=== PATIENT | female | born 1995 | race Caucasian/White ===

== ENCOUNTER 2017-03-15 11:50 | Emergency (ER) | payer SELFPAY ==
[2017-03-15 11:59] VITALS: BP 120/62
--- NOTE | 2017-03-15 12:14 | ER Document Report ---
HPI - HPI Patient complains to provider of: insect bite Pain Level: 2 Context: 21 yo healthy female c/o swollen insect bite to dorsal left hand x 3 days. local swelling and itching. no drainage. feels otherwise fine. Associated Symptoms: None Exacerbated by: Denies Relieved by: Denies Similar symptoms previously: No Recently seen / treated by doctor: No - ROS Systems Reviewed and Negative: Yes All other systems reviewed and negative - REPRODUCTIVE LMP: mirena Reproductive: REPORTS: : - DERM Skin Color: Normal Past Medical History - General Information source: Patient - Social History Smoking Status: Current Every Day Smoker Frequency of alcohol use: None Drug Abuse: None Lives with: Family Family History: Reviewed & Not Pertinent Patient has suicidal ideation: No Patient has homicidal ideation: No - Medical History Medical History: Negative - Past Medical History Cardiac Medical History: Denies: Hx DVT Endocrine Medical History: Denies: Hx Diabetes Mellitus Type 1, Hx Diabetes Mellitus Type 2 Renal/ Medical History: Denies: Hx Ectopic , Hx Peritoneal Dialysis Past Surgical History: Reports: Hx Cardiac Surgery - repaired hole in heart, Hx Herniorrhaphy - Immunizations Hx Diphtheria, Pertussis, Tetanus Vaccination: Yes Vertical Provider Document - CONSTITUTIONAL Agree With Documented VS: Yes Exam Limitations: No Limitations General Appearance: WD/WN, No Apparent Distress - INFECTION CONTROL TRAVEL OUTSIDE OF THE [place] IN LAST 30 DAYS: No - HEENT HEENT: Atraumatic, PERRLA - NECK Neck: Normal Inspection, Supple - RESPIRATORY Respiratory: Breath Sounds Normal, No Respiratory Distress O2 Sat by Pulse Oximetry: 100 - CARDIOVASCULAR Cardiovascular: Regular Rate, Regular Rhythm - GI/ABDOMEN Gastrointestinal: Abdomen Soft - MUSCULOSKELETAL/EXTREMETIES Musculoskeletal/Extremeties: MAEW, FROM, Non-Tender - NEURO Level of Consciousness: Awake, Alert - DERM Integumentary: Warm, Dry, Rash - dime sized erythema and induration to mid dorsal left hand. no fluctuance. Course - Re-evaluation Re-evalutation: 03/15/17 12:11 H&P c/w local reaction to insect bite. no s/s infection. will treat with topical hydrocortisone cream and benadryl. pt agreeable with plan and stable for discharge - Vital Signs Vital signs: Temp Pulse Resp BP Pulse Ox 98.1 F 71 16 120/62 100 03/15/17 11:57 03/15/17 11:57 03/15/17 11:57 03/15/17 11:57 03/15/17 11:57 Discharge - Discharge Clinical Impression: Insect bite Qualifiers: Encounter type: initial encounter Qualified Code(s): W57.XXXA - Bitten or stung by nonvenomous insect and other nonvenomous arthropods, initial encounter Condition: Stable Disposition: HOME, SELF-CARE Instructions: Swollen Insect Bite or Sting ([facility]), Topical Steroid Cream or Ointment ([facility]), Use of Diphenhydramine Additional Instructions: apply ice to hand use topical steroid cream as prescribed benadryl 50mg every 6h follow up with primary care for any worsening Prescriptions: Triamcinolone Acetonide [Aristocort 0.5% Cream 15 gm] 1 applic TP BID #15 g Forms: Return to Work
== END 2017-03-15 12:20 | disposition home or self-care (01) ==
LOC: ER 11:50
DX: S60.562A Insect bite (nonvenomous) of left hand, initial encounter (principal); W57.XXXA Bitten or stung by nonvenomous insect and other nonvenomous arthropods, initial encounter; F17.200 Nicotine dependence, unspecified, uncomplicated; Z97.5 Presence of (intrauterine) contraceptive device
CPT/HCPCS: 99281

== ENCOUNTER 2017-03-24 21:06 | Emergency (ER) | payer SELFPAY ==
--- NOTE | 2017-03-24 22:13 | ER Document Report ---
ED Skin Rash/Insect Bite/Abscs - General Chief Complaint: Insect Bite Stated Complaint: POSSIBLE INSECT BITE Time Seen by Provider: 03/24/17 21:29 Mode of Arrival: Ambulatory Information source: Patient Notes: 21-year-old female presents to ED for complaint on insect bites on her both arms and left lower back for several days. Patient was seen for the same problem a week ago and given steroid cream. Patient states that the she has been using the cream on the right and has had some relief but not complete. TRAVEL OUTSIDE OF THE [place] IN LAST 30 DAYS: No - HPI Patient complains to provider of: Insect bite Onset: Other - Several days Onset/Duration: Persistent Quality of pain: Achy, Burning Severity: Mild Pain Level: 1 Skin Character: Erythema, Swelling, Tenderness Quality of rash: Painful Identify cause: Yes Exacerbated by: Denies Relieved by: Denies Similar symptoms previously: Yes Recently seen / treated by doctor: Yes - Related Data Allergies/Adverse Reactions: amoxicillin Allergy (Verified 07/01/16 09:52) clindamycin Allergy (Verified 07/01/16 09:52) Penicillins Allergy (Verified 07/01/16 09:52) sulfamethoxazole [From Bactrim] Allergy (Verified 07/29/14 13:21) trimethoprim [From Bactrim] Allergy (Verified 07/29/14 13:21) Past Medical History - General Information source: Patient - Social History Smoking Status: Current Every Day Smoker Cigarette use (# per day): Yes - 3-5 cigarettes a day Chew tobacco use (# tins/day): No Smoking Education Provided: Yes - Less than 2 minutes Frequency of alcohol use: None Drug Abuse: None Occupation: [employer] Lives with: Family Family History: CAD, COPD, DM, Hyperlipidemia, Hypertension Patient has suicidal ideation: No Patient has homicidal ideation: No - Medical History Medical History: Other - 26 weeks gestation - Past Medical History Cardiac Medical History: Reports: Other - vsd repaired as infant Pulmonary Medical History: Reports: None EENT Medical History: Reports: None Neurological Medical History: Reports: None Endocrine Medical History: Reports: None Renal/ Medical History: Reports: None Malignancy Medical History: Reports: None GI Medical History: Reports: None Musculoskeltal Medical History: Reports None Skin Medical History: Reports None Psychiatric Medical History: Reports: Hx Depression - depression Traumatic Medical History: Reports: None Infectious Medical History: Reports: None Past Surgical History: Reports: Hx Cardiac Surgery - vsd repair, Hx Herniorrhaphy, Hx Umbilical Hernia - Immunizations Hx Diphtheria, Pertussis, Tetanus Vaccination: Yes Review of Systems - Review of Systems Constitutional: No symptoms reported EENT: No symptoms reported Cardiovascular: No symptoms reported Respiratory: No symptoms reported Gastrointestinal: No symptoms reported Genitourinary: No symptoms reported Female Genitourinary: No symptoms reported Musculoskeletal: No symptoms reported Skin: Other - insect bites to arms and left lower back Hematologic/Lymphatic: No symptoms reported Neurological/Psychological: No symptoms reported -: Yes All other systems reviewed and negative Physical Exam - Vital signs Vitals: Temp Pulse Resp BP Pulse Ox 97.9 F 63 18 121/73 100 03/24/17 21:10 03/24/17 21:10 03/24/17 21:10 03/24/17 21:10 03/24/17 21:10 Interpretation: Normal - General General appearance: Appears well, Alert - HEENT Head: Normocephalic, Atraumatic Eyes: Normal Pupils: PERRL - Respiratory Respiratory status: No respiratory distress Chest status: Nontender Breath sounds: Normal Chest palpation: Normal - Cardiovascular Rhythm: Regular Heart sounds: Normal auscultation Murmur: No - Abdominal Inspection: Normal Distension: No distension Bowel sounds: Normal Tenderness: Nontender Organomegaly: No organomegaly - Back Back: Normal, Nontender - Extremities General upper extremity: Normal inspection, Nontender, Normal color, Normal ROM , Normal temperature General lower extremity: Normal inspection, Nontender, Normal color, Normal ROM , Normal temperature, Normal weight bearing. No: Jose De Jesus's sign - Neurological Neuro grossly intact: Yes Cognition: Normal Orientation: AAOx4 [place] Coma Scale Eye Opening: Spontaneous [place] Coma Scale Verbal: Oriented [place] Coma Scale Motor: Obeys Commands [place] Coma Scale Total: 15 Speech: Normal Motor strength normal: LUE, RUE, LLE, RLE Sensory: Normal - Psychological Associated symptoms: Normal affect, Normal mood - Skin Skin Temperature: Warm Skin Moisture: Dry Skin Color: Normal Location of irregularity: Extremities - insect bites to arms and left lower back Irregularity with: Swelling, Tenderness Course - Vital Signs Vital signs: Temp Pulse Resp BP Pulse Ox 98.6 F 60 17 100/53 L 98 03/24/17 22:29 03/24/17 22:29 03/24/17 22:29 03/24/17 22:29 03/24/17 22:29 Discharge - Discharge Clinical Impression: Insect bite of arm Qualifiers: Encounter type: initial encounter Laterality: unspecified laterality Qualified Code(s): S40.869A - Insect bite (nonvenomous) of unspecified upper arm, initial encounter Insect bite of back Qualifiers: Encounter type: initial encounter Laterality: unspecified laterality Qualified Code(s): S20.469A - Insect bite (nonvenomous) of unspecified back wall of thorax , initial encounter Condition: Stable Disposition: HOME, SELF-CARE Instructions: Family Physicians / Practices Additional Instructions: Insect Bites You have been bitten by an insect. These bites can cause two types of swelling: an initial swelling due to insect saliva or injected poison, and a late reaction due to your body's allergic reaction. This initial local reaction may be uncomfortable but is not dangerous. Often there's an itchy "hive" at the bite location. This is treated with antihistamines, cold compresses, and resting the affected body part. The later reaction often develops about the second day. The entire area becomes very swollen, red, itchy, and tender. This is an allergic reaction. Your body is attacking the leftover insect saliva or venom. This type of allergy is unpleasant, but not dangerous. We treat this swelling with cortisone -type medicine. Sometimes we use antibiotics if we're worried about infection. Antihistamines help with the itch. If you develop a fever, chills, a red streak, or swollen glands in the area of the bite, infection may be starting. Return at once. Diphenhydramine The use of diphenhydramine (Benadryl) has been recommended to control allergic symptoms. The 25 mg strength is available over- the-counter, as well as the elixir. This antihistamine is used for many symptoms. It's useful for itching, watering eyes and nose, allergic swelling, hives, and insect stings. The medication can be repeated four times daily. Age Elixir (12.5 mg/tsp) 25 mg pill 1 yr 1/4 tsp 2-3 yr 1/2 tsp 4-8 yr 1 tsp 9-14 yr 2 tsp one tab adult 1-2 tabs Antihistamines may cause drowsiness, especially with the first dose. Do not operate machinery or drive while under the effects of the medication. Do not combine the medication with alcohol, or with any other medication without talking to your doctor. Ice Packs Apply ice packs frequently against the painful area. Many different schedules are recommended, such as "20 minutes on, 20 minutes off" or "one hour ice, two hours rest." If you need to work, you may need to go longer between ice treatments. You should plan to have the area ice packed AT LEAST one fourth of the time. The ice should be applied over the wrap, tape, or splint, or over a layer of cloth -- not directly against the skin. Some ice bags have a built-in cloth and can be put directly on the skin. Ibuprofen Ibuprofen is an excellent, safe drug for pain control. In addition, it has potent antiinflammatory effects which are beneficial, especially in the treatment of injuries, arthritis, or tendonitis. It's best to take ibuprofen with food. Persons with ulcer disease or allergy to aspirin should notify their physician of this before taking ibuprofen. Take the medication exactly as prescribed. Don't take additional doses unless instructed to do so by your doctor. If you develop wheezing, shortness of breath, hives, faintness, stomach pain, vomiting, or dark black stools, return for re-evaluation at once. FOLLOW-UP CARE: If you have been referred to a physician for follow-up care, call the physician s office for an appointment as you were instructed or within the next two days. If you experience worsening or a significant change in your symptoms, notify the physician immediately or return to the Emergency Department at any time for re-evaluation. Forms: Smoking Cessation Education, Return to Work
[2017-03-24 22:30] VITALS: BP 100/53
== END 2017-03-24 22:30 | disposition home or self-care (01) ==
LOC: ER 21:06
DX: O9A.212 Injury, poisoning and certain other consequences of external causes complicating pregnancy, second trimester (principal); S30.860A Insect bite (nonvenomous) of lower back and pelvis, initial encounter; S40.862A Insect bite (nonvenomous) of left upper arm, initial encounter; S40.861A Insect bite (nonvenomous) of right upper arm, initial encounter; W57.XXXA Bitten or stung by nonvenomous insect and other nonvenomous arthropods, initial encounter; O99.332 Smoking (tobacco) complicating pregnancy, second trimester; F17.210 Nicotine dependence, cigarettes, uncomplicated; Z71.6 Tobacco abuse counseling; Z3A.26 26 weeks gestation of pregnancy; Z88.1 Allergy status to other antibiotic agents; Z88.0 Allergy status to penicillin
CPT/HCPCS: 99281

== ENCOUNTER 2017-05-07 09:54 | Emergency (ER) | payer SELFPAY ==
[2017-05-07] MEDS ORDERED: MAG HYDROX/AL HYDROX/SIMETH SUSP 30 ML UDCUP PO ONE (10:18)
[2017-05-07] MEDS ORDERED: LIDOCAINE 2% VISCOUS SOLN 20 ML UDCUP PO ONE (10:18)
[2017-05-07] MEDS ORDERED: ONDANSETRON 4 MG TAB.RAPDIS PO ONE (10:18)
--- NOTE | 2017-05-07 10:21 | ER Document Report ---
ED Medical Screen (RME) - General Chief Complaint: Abdominal Pain Stated Complaint: STOMACH PAIN Time Seen by Provider: 05/07/17 10:13 Notes: 21-year-old female patient onset yesterday of epigastric cramping. Nausea and making herself vomit. 2 episodes of diarrhea today. She reports when she stands up quickly from laying down the cramping gets worse in the epigastric region. On exam abdomen is soft, right upper quadrant is not tender, epigastrium is tender, active bowel sounds. I have greeted and performed a rapid initial assessment of this patient. A comprehensive ED assessment and evaluation of the patient, analysis of test results and completion of the medical decision making process will be conducted by additional ED providers. TRAVEL OUTSIDE OF THE [place] IN LAST 30 DAYS: No - Related Data Allergies/Adverse Reactions: amoxicillin Allergy (Verified 05/07/17 09:57) clindamycin Allergy (Verified 05/07/17 09:57) Penicillins Allergy (Verified 05/07/17 09:57) sulfamethoxazole [From Bactrim] Allergy (Verified 05/07/17 09:57) trimethoprim [From Bactrim] Allergy (Verified 05/07/17 09:57) Past Medical History - Social History Chew tobacco use (# tins/day): No Frequency of alcohol use: None Drug Abuse: None - Past Medical History Cardiac Medical History: Denies: Hx DVT Endocrine Medical History: Denies: Hx Diabetes Mellitus Type 1, Hx Diabetes Mellitus Type 2 Renal/ Medical History: Denies: Hx Ectopic , Hx Peritoneal Dialysis Psychiatric Medical History: Reports: Hx Depression - depression Past Surgical History: Reports: Hx Abdominal Surgery - hernia, Hx Cardiac Surgery - vsd repair, Hx Herniorrhaphy, Hx Umbilical Hernia - Immunizations Hx Diphtheria, Pertussis, Tetanus Vaccination: No Physical Exam - Vital signs Vitals: Temp Pulse Resp BP Pulse Ox 97.6 F 64 14 125/77 99 05/07/17 09:57 05/07/17 09:57 05/07/17 09:57 05/07/17 09:57 05/07/17 09:57 Course - Vital Signs Vital signs: Temp Pulse Resp BP Pulse Ox 97.6 F 64 14 125/77 99 05/07/17 09:57 05/07/17 09:57 05/07/17 09:57 05/07/17 09:57 05/07/17 09:57
[2017-05-07 10:45] LABS: ABSOLUTE EOSINOPHILS # (AUTO) 0.1 10^3/uL (0.0-0.6); ABSOLUTE LYMPHOCYTES (AUTO) 1.1 10^3/uL (0.5-4.7); ABSOLUTE MONOCYTES (AUTO) 0.6 10^3/uL (0.1-1.4); ABSOLUTE NEUT (AUTO) 3.6 10^3/uL (1.7-8.2); BASOPHILS % (AUTO) 0.9 % (0-2); EOSINOPHILS % (AUTO) 1.2 % (0-6); HEMATOCRIT 47.2 % (36.0-47.0); HEMOGLOBIN 16.9 g/dL (12.0-15.5); HGB HCT DIFFERENCE 3.5; LYMPHOCYTES % (AUTO) 19.8 % (13-45); MEAN CORPUSCULAR HEMOGLOBIN 32.1 pg (27.0-33.4); MEAN CORPUSCULAR HGB CONC 35.8 g/dL (32.0-36.0); MEAN CORPUSCULAR VOLUME 90 fl (80-97); RED BLOOD COUNT 5.26 10^6/uL (3.72-5.28); RED CELL DISTRIBUTION WIDTH 12.3 % (11.5-14.0); SEGMENTED NEUTROPHILS % (AUTO) 66.1 % (42-78); WHITE BLOOD COUNT 5.4 10^3/uL (4.0-10.5)
[2017-05-07 10:52] LABS: APPEARANCE,URINE SLIGHTLY-CLOUDY; BILIRUBIN,URINE NEGATIVE (NEGATIVE); GLUCOSE, URINE NEGATIVE (NEGATIVE); KETONES,URINE 20 mg/dL (NEGATIVE); LEUKOCYTE ESTERASE,URINE NEGATIVE (NEGATIVE); NITRITE,URINE NEGATIVE (NEGATIVE); PROTEIN,URINE NEGATIVE (NEGATIVE); URINE SPECIFIC GRAVITY 1.024
[2017-05-07 11:04] LABS: ALANINE AMINOTRANSFERASE 24 U/L (9-52); ALKALINE PHOSPHATASE 95 U/L (38-126); ANION GAP 14 (5-19); ASPARTATE AMINO TRANSFERASE 30 U/L (14-36); BILIRUBIN,DIRECT 0.5 mg/dL (0.0-0.4); BILIRUBIN,TOTAL 2.1 mg/dL (0.2-1.3); BLOOD UREA NITROGEN 13 mg/dL (7-20); CALCIUM 10.3 mg/dL (8.4-10.2); CARBON DIOXIDE 24 mmol/L (22-30); CHLORIDE 102 mmol/L (98-107); CREATININE RESULT 0.67 mg/dL (0.52-1.25); GLUCOSE 73 mg/dL (75-110); LIPASE 50.9 U/L (23-300); POTASSIUM 4.2 mmol/L (3.6-5.0); SODIUM 140.3 mmol/L (137-145); TOTAL PROTEIN 7.9 g/dL (6.3-8.2)
--- NOTE | 2017-05-07 11:28 | ER Document Report ---
ED General - General Chief Complaint: Abdominal Pain Stated Complaint: STOMACH PAIN Time Seen by Provider: 05/07/17 10:13 TRAVEL OUTSIDE OF THE [place] 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 Patient denies any other medical problems denies any abdominal surgeries. Upon my evaluation patient is resting company smiling in no obvious distress. Denies any trauma recent antibiotics. Denies fevers chills chest pain. - Related Data Allergies/Adverse Reactions: amoxicillin Allergy (Verified 05/07/17 09:57) clindamycin Allergy (Verified 05/07/17 09:57) Penicillins Allergy (Verified 05/07/17 09:57) sulfamethoxazole [From Bactrim] Allergy (Verified 05/07/17 09:57) trimethoprim [From Bactrim] Allergy (Verified 05/07/17 09:57) Past Medical History - Social History Smoking Status: Current Every Day Smoker Chew tobacco use (# tins/day): No Frequency of alcohol use: None Drug Abuse: None Family History: CAD, COPD, DM, Hyperlipidemia, Hypertension - Past Medical History Cardiac Medical History: Denies: Hx DVT Endocrine Medical History: Denies: Hx Diabetes Mellitus Type 1, Hx Diabetes Mellitus Type 2 Renal/ Medical History: Denies: Hx Ectopic , Hx Peritoneal Dialysis Psychiatric Medical History: Reports: Hx Depression - depression Past Surgical History: Reports: Hx Abdominal Surgery - hernia, Hx Cardiac Surgery - vsd repair, Hx Herniorrhaphy, Hx Umbilical Hernia - Immunizations Hx Diphtheria, Pertussis, Tetanus Vaccination: No Review of Systems - Review of Systems Constitutional: No symptoms reported EENT: No symptoms reported Cardiovascular: No symptoms reported Respiratory: No symptoms reported Gastrointestinal: Abdominal pain Genitourinary: No symptoms reported Female Genitourinary: No symptoms reported Musculoskeletal: No symptoms reported Skin: No symptoms reported Hematologic/Lymphatic: No symptoms reported Neurological/Psychological: No symptoms reported -: Yes All other systems reviewed and negative Physical Exam - Vital signs Vitals: Temp Pulse Resp BP Pulse Ox 97.6 F 64 14 125/77 99 05/07/17 09:57 05/07/17 09:57 05/07/17 09:57 05/07/17 09:57 05/07/17 09:57 Interpretation: Normal - General General appearance: Appears well, Alert - HEENT Head: Normocephalic, Atraumatic Eyes: Normal Pupils: PERRL - Respiratory Respiratory status: No respiratory distress Chest status: Nontender Breath sounds: Normal Chest palpation: Normal - Cardiovascular Rhythm: Regular Heart sounds: Normal auscultation Murmur: No - Abdominal Inspection: Normal Distension: No distension Bowel sounds: Normal Tenderness: Nontender Organomegaly: No organomegaly - Back Back: Normal, Nontender - Extremities General upper extremity: Normal inspection, Nontender, Normal color, Normal ROM , Normal temperature General lower extremity: Normal inspection, Nontender, Normal color, Normal ROM , Normal temperature, Normal weight bearing. No: Jose De Jesus's sign - Neurological Neuro grossly intact: Yes Cognition: Normal Orientation: AAOx4 [place] Coma Scale Eye Opening: Spontaneous [place] Coma Scale Verbal: Oriented [place] Coma Scale Motor: Obeys Commands [place] Coma Scale Total: 15 Speech: Normal Motor strength normal: LUE, RUE, LLE, RLE Sensory: Normal - Psychological Associated symptoms: Normal affect, Normal mood - Skin Skin Temperature: Warm Skin Moisture: Dry Skin Color: Normal Course - Re-evaluation Re-evalutation: 05/07/17 14:15 The patient presents with abdominal pain without signs of peritonitis or other life-threatening or serious etiology. The patient appears stable for discharge and has been instructed to return immediately if the symptoms worsen in any way , or in 8-12hr if not improved for re-evaluation. The patient has been instructed to return if the symptoms worsen or change in any way. - Vital Signs Vital signs: Temp Pulse Resp BP Pulse Ox 97.8 F 66 16 120/70 100 05/07/17 11:39 05/07/17 11:39 05/07/17 11:39 05/07/17 11:39 05/07/17 11:39 - Laboratory Result Diagrams: 05/07/17 10:30 05/07/17 10:30 Laboratory results interpreted by me: 05/07/17 05/07/17 05/07/17 10:30 10:30 10:30 Hgb 16.9 H Hct 47.2 H Plt Count 145 L Glucose 73 L Calcium 10.3 H Total Bilirubin 2.1 H Direct Bilirubin 0.5 H Urine Ketones 20 H Urine Blood SMALL H Urine Urobilinogen 2.0 H Discharge - Discharge Clinical Impression: Nausea & vomiting Qualifiers: Vomiting type: unspecified Vomiting Intractability: unspecified Qualified Code( s): R11.2 - Nausea with vomiting, unspecified Abdominal pain Qualifiers: Abdominal location: unspecified location Qualified Code(s): R10.9 - Unspecified abdominal pain Condition: Good Disposition: HOME, SELF-CARE Instructions: Abdominal Pain ([facility]), Vomiting ([facility]) Additional Instructions: Take medication as prescribed. Return to the ER if symptoms worsen. Follow-up with your primary care physician. Prescriptions: Ondansetron [Zofran Odt 4 mg Tablet] 4 mg PO Q4HP PRN #30 tab.rapdis PRN Reason: Dicyclomine HCl [Bentyl 20 mg Tablet] 20 mg PO QID #30 tablet Forms: Return to Work
[2017-05-07 11:40] VITALS: BP 120/70
== END 2017-05-07 11:40 | disposition home or self-care (01) ==
LOC: ER 09:54
DX: R11.2 Nausea with vomiting, unspecified (principal); R10.13 Epigastric pain; F17.200 Nicotine dependence, unspecified, uncomplicated; Z88.0 Allergy status to penicillin; Z88.3 Allergy status to other anti-infective agents
CPT/HCPCS: 99284; 36415; 83690; 85025; 80053; 81001; S0119; J3490

== ENCOUNTER 2017-10-26 14:59 | Emergency (ER) | payer MEDICAID ==
[2017-10-26 15:05] VITALS: BP 111/65
--- NOTE | 2017-10-26 15:19 | ER Document Report ---
ED General - General Chief Complaint: Flu Symptoms Stated Complaint: HEADACHE,BODY ACHES,SORE THROAT Time Seen by Provider: 10/26/17 15:16 Mode of Arrival: Ambulatory Information source: Patient Notes: Patient is a healthy 21-year-old female who presents with headache, sore throat , body aches, chills that started this morning after she woke up. 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 She denies any fever, dizziness, changes in vision, ear pain, neck pain or stiffness, photophobia, phonophobia, difficulty breathing, vomiting, diarrhea. She tried some Tylenol for headache which did improve mildly. Otherwise doing well. TRAVEL OUTSIDE OF THE [place] IN LAST 30 DAYS: No - Related Data Allergies/Adverse Reactions: amoxicillin Allergy (Verified 10/26/17 15:02) clindamycin Allergy (Verified 10/26/17 15:02) Penicillins Allergy (Verified 10/26/17 15:02) sulfamethoxazole [From Bactrim] Allergy (Verified 10/26/17 15:02) trimethoprim [From Bactrim] Allergy (Verified 10/26/17 15:02) Past Medical History - General Information source: Patient - Social History Smoking Status: Never Smoker Family History: CAD, COPD, DM, Hyperlipidemia, Hypertension - Past Medical History Cardiac Medical History: Denies: Hx DVT Endocrine Medical History: Denies: Hx Diabetes Mellitus Type 1, Hx Diabetes Mellitus Type 2 Renal/ Medical History: Denies: Hx Ectopic , Hx Peritoneal Dialysis Psychiatric Medical History: Reports: Hx Depression - depression Past Surgical History: Reports: Hx Abdominal Surgery - hernia, Hx Cardiac Surgery - vsd repair, Hx Herniorrhaphy, Hx Umbilical Hernia - Immunizations Hx Diphtheria, Pertussis, Tetanus Vaccination: No Review of Systems - Review of Systems Constitutional: See HPI EENT: No symptoms reported, See HPI Cardiovascular: No symptoms reported Respiratory: See HPI Gastrointestinal: No symptoms reported Genitourinary: No symptoms reported Female Genitourinary: No symptoms reported Musculoskeletal: No symptoms reported Skin: No symptoms reported Hematologic/Lymphatic: No symptoms reported Neurological/Psychological: No symptoms reported Physical Exam - Vital signs Vitals: Temp Pulse Resp BP Pulse Ox 98.5 F 80 16 111/65 98 10/26/17 15:03 10/26/17 15:03 10/26/17 15:03 10/26/17 15:03 10/26/17 15:03 - Notes Notes: PHYSICAL EXAM: CONSTITUTIONAL: Alert and oriented, well-appearing and in no acute distress. HENT: Normocephalic, atraumatic. Ear canals without erythema or foreign body, TMs pearly dale with good bony landmarks. Nares clear without erythema, septal hematoma or deviation, airway patent. Oropharynx clear without erythema, tonsilar exudate or malocclusion. Trachea midline. Uvula midline. Moist mucous membranes. EYES: Pupils equal round and reactive to light, EOM intact. Sclera anicteric, conjunctiva are normal. No entrapment. NECK: supple without lymphadenopathy. No midline tenderness or paraspinous muscle spasms. No step-offs or deformities. ROM intact. HEART: Regular rate and rhythm without murmurs. LUNGS: CTAB and equal. No wheezes, rales or rhonchi. GI: Normactive bowel sounds. Nontender, non-distended. No organomegaly. no CVAT. EXTREMITIES: no bony tenderness, erythema, edema, ecchymosis or deformity. Normal range of motion, no pitting edema. No cyanosis. Cap Refill <3 seconds. NEURO: Cranial nerves grossly intact. Normal sensory/motor exams. PSYCH: Normal mood, normal affect. SKIN: Warm and dry. Normal turgor. No rashes or lesions noted. Course - Re-evaluation Re-evalutation: 10/26/17 15:19 Patient seen and examined. Well hydrated, well appearing, no respiratory distress. Vital signs stable and afebrile. Exam consistent with viral syndrome. Negative rapid strep and rapid flu. Will treat with supportive medications. Low suspicion for SAH, meningitis, pneumonia, sepsis or other emergent conditions. At this time, will discharge with return precautions and follow-up recommendations. Verbal discharge instructions given at the bedside and opportunity for questions given. Medication warnings reviewed. Patient is in agreement with this plan and has verbalized understanding of return precautions and the need for primary care follow-up in the next 24-72 hours. - Vital Signs Vital signs: Temp Pulse Resp BP Pulse Ox 98.5 F 80 16 111/65 98 10/26/17 15:03 10/26/17 15:03 10/26/17 15:03 10/26/17 15:03 03/01/18 15:03 Discharge - Discharge Clinical Impression: Viral syndrome Condition: Stable Disposition: HOME, SELF-CARE Additional Instructions: UPPER RESPIRATORY ILLNESS: You have a viral infection of the respiratory passages -- a "cold." This common infection causes nasal congestion, drainage, and often sore throat and cough. It is highly contagious. The disease usually lasts about 10 to 14 days. There is no "cure" for the viral infection -- it must run its course. If there is a complication, such as bacterial infection in the nose, sinuses, middle ear, or bronchial tubes, antibiotics may be required. The antibiotics won't affect the virus. Drink plenty of fluids. A humidifier may help. An expectorant medication or decongestant may make you more comfortable. Use acetaminophen or ibuprofen for fever or aches. See the doctor if fever persists over two days, if there is any significant worsening of your symptoms, or if you simply fail to improve as expected. DECONGESTANT MEDICATION: A decongestant medicine has been prescribed. Often this medicine is combined in the same tablet with an antihistamine or expectorant. This type of medicine is helpful in treating a bad cold or sinus condition, as well as in treatment of the nasal congestion of hay fever. It is not of much benefit for lung infections. Decongestant medicines are related to stimulants. They can cause an increase in blood pressure and heart rate. Persons with heart disease and high blood pressure should not take decongestants without discussing this with the physician. If you develop palpitations, chest pain, headache, or tremors, stop the medicine and consult your physician. COUGH-SUPPRESSANT & EXPECTORANT MEDICATION: You are to use a cough medication as needed for relief of symptoms. This medicine is a combination of an expectorant (to make the mucous thinner and more easily "coughed up") and a cough suppressant (to reduce the frequency of coughing). The cough-suppressant medicine is related to narcotics. You may experience mild nausea and sleepiness. Some patients who are very sensitive to narcotics may have stomach pain from this medicine. Taking the medicine with food reduces these side effects. Do not drive or work with machinery until you know how this medicine affects you. The expectorant should have no side effects. Iodine-containing expectorants (such as organidin) should not be taken by persons with active thyroid disease unless approved by your doctor. Call the doctor if you develop shortness of breath, hives, rash, itching, lightheadedness, or severe nausea and vomiting. USE OF ACETAMINOPHEN (Tylenol): Acetaminophen may be taken for pain relief or fever control. It's much safer than aspirin, offering a wider range of "safe" dosages. It is safe during . Some brand names are Tylenol, Panadol, Datril, Anacin 3, Tempra, and Liquiprin. Acetaminophen can be repeated every four hours. The following are maximum recommended dosages: >89 pounds or adults 650 mg to 900 mg Acetaminophen can be repeated every four hours. Maximum dose not to exceed 4000 mg a day. SMOKING: If you smoke, you should stop smoking. The tar and chemicals in cigarette smoke are harmful. Smoking has been shown to cause: emphysema chronic bronchitis lung cancer mouth and throat cancer stomach and pancreas cancer premature aging defects In addition, smoking increases ear and lung infections in children of smokers. FOLLOW-UP CARE: If you have been referred to a physician for follow-up care, call the physician s office for an appointment as you were instructed or within the next two days. If you experience worsening or a significant change in your symptoms, notify the physician immediately or return to the Emergency Department at any time for re-evaluation. Prescriptions: Pseudoephedrine HCl [Sudafed] 30 mg PO Q6HP PRN #8 tablet PRN Reason: Cetirizine HCl [Zyrtec 10 mg Tablet] 1 tab PO DAILY #30 tablet Ibuprofen [Motrin 600 Mg Tablet] 600 mg PO TID #15 tablet Forms: Return to Work
[2017-10-26 15:50] LABS: A TYPE INFLUENZA AG NEGATIVE (NEGATIVE); B INFLUENZA AG NEGATIVE (NEGATIVE)
== END 2017-10-26 16:17 | disposition home or self-care (01) ==
LOC: ER 14:59
DX: J02.9 Acute pharyngitis, unspecified (principal); B34.9 Viral infection, unspecified; R51 Headache; M79.1 Myalgia; Z88.0 Allergy status to penicillin; Z88.3 Allergy status to other anti-infective agents
CPT/HCPCS: 87070; 87804; 87880; 99283

== ENCOUNTER 2018-03-26 14:54 | Emergency (ER) | payer SELFPAY ==
[2018-03-26] MEDS ORDERED: PSEUDOEPHEDRINE HCL 30 MG TABLET PO ONE (16:02)
[2018-03-26] MEDS ORDERED: IBUPROFEN 400 MG TABLET PO ONE (16:02)
[2018-03-26] MEDS ORDERED: LORATADINE 10 MG TABLET PO ONE (16:02)
[2018-03-26] MEDS ORDERED: GUAIFENESIN 600 MG TABLET.SA PO ONE (16:02)
--- NOTE | 2018-03-26 16:08 | ER Document Report ---
HPI - HPI Patient complains to provider of: cough cold sore throat Onset: Last week - monday week ago Onset/Duration: Intermittent Quality of pain: Pressure, Sharp Severity: Moderate Pain Level: 3 Associated Symptoms: Nonproductive cough, Headache, Rhinnorhea, Sinus pain/ drainage, Sore throat, Other - body aches Exacerbated by: Denies Relieved by: Denies Similar symptoms previously: Yes Recently seen / treated by doctor: No - CONSTITUTIONAL Constitutional: DENIES: Fever, Chills - EENT EENT: REPORTS: Sore Throat - NEURO Neurology: REPORTS: Headache - CARDIOVASCULAR Cardiovascular: DENIES: Chest pain - RESPIRATORY Respiratory: REPORTS: Coughing. DENIES: Trouble Breathing - GASTROINTESTINAL Gastrointestinal: DENIES: Abdominal Pain, Nausea, Patient vomiting, Diarrhea, Constipation, Black / Bloody Stools - URINARY Urinary: DENIES: Dysuria, Urgency, Frequency - REPRODUCTIVE Reproductive: DENIES: :, Postmenopausal, Abnormal bleeding / discharge - MUSCULOSKELETAL Musculoskeletal: DENIES: Extremity pain, Back Pain, Neck Pain, Swelling Notes: Body aches - DERM Skin Color: Normal Skin Problems: None Past Medical History - General Information source: Patient Last Menstrual Period: march 10 - Social History Smoking Status: Current Every Day Smoker Cigarette use (# per day): Yes - 4 Chew tobacco use (# tins/day): No Smoking Education Provided: Yes - 4 min Frequency of alcohol use: None Drug Abuse: None Lives with: Family Family History: CAD, COPD, DM, Hyperlipidemia, Hypertension Patient has suicidal ideation: No Patient has homicidal ideation: No - Past Medical History Cardiac Medical History: Reports: None Pulmonary Medical History: Reports: None EENT Medical History: Reports: None Neurological Medical History: Reports: None Endocrine Medical History: Reports: None Renal/ Medical History: Reports: None Malignancy Medical History: Reports: None GI Medical History: Reports: None Musculoskeletal Medical History: Reports None Skin Medical History: Reports None Psychiatric Medical History: Reports: Hx Depression - depression Traumatic Medical History: Reports: None Infectious Medical History: Reports: None Past Surgical History: Reports: Hx Cardiac Surgery - vsd repair, Hx Umbilical Hernia - Immunizations Hx Diphtheria, Pertussis, Tetanus Vaccination: No Vertical Provider Document - CONSTITUTIONAL Agree With Documented VS: Yes Exam Limitations: No Limitations General Appearance: WD/WN, No Apparent Distress - INFECTION CONTROL TRAVEL OUTSIDE OF THE [place] IN LAST 30 DAYS: No - HEENT HEENT: Atraumatic, Normocephalic, PERRLA Notes: Red swollen nasal turbinates with postnasal drip sore throat cough - RESPIRATORY Respiratory: Breath Sounds Normal, No Respiratory Distress - CARDIOVASCULAR Cardiovascular: Regular Rate, Regular Rhythm - GI/ABDOMEN Gastrointestinal: Abdomen Soft, Abdomen Non-Tender, No Organomegaly, Normal Bowel Sounds - BACK Back: Normal Inspection - MUSCULOSKELETAL/EXTREMETIES Musculoskeletal/Extremeties: MAEW, FROM, Non-Tender - NEURO Level of Consciousness: Awake, Alert, Appropriate Motor/Sensory: No Motor Deficit, No Sensory Deficit, No Pronator Drift - DERM Integumentary: Warm, Dry, No Rash Course - Re-evaluation Re-evalutation: 03/26/18 16:13 Patient assessment consistent with upper respiratory infection with a cough cold congestion headache and sore throat. Patient was treated with Claritin 10 mg, Sudafed 30 mg, Mucinex 600 mg, and ibuprofen 400 mg, in the emergency room. She was also given other instructions concerning care of upper respiratory infection patient has been discharged home to follow-up with her primary doctor. After performing a Medical Screening Examination, I estimate there is LOW risk for ACUTE CORONARY SYNDROME, RESPIRATORY FAILURE, SEPSIS OR MENINGITIS , thus I consider the discharge disposition reasonable. I have reevaluated this patient multiple times and no significant life threatening changes are noted. The patient and I have discussed the diagnosis and risks, and we agree with discharging home with close follow-up. We also discussed returning to the Emergency Department immediately if new or worsening symptoms occur. We have discussed the symptoms which are most concerning (e.g., changing or worsening pain, trouble swallowing or breathing, neck stiffness, fever) that necessitate immediate return. - Vital Signs Vital signs: Temp Pulse Resp BP Pulse Ox 99.6 F 75 16 113/59 L 98 03/26/18 15:00 03/26/18 15:00 03/26/18 15:00 03/26/18 15:00 03/26/18 15:00 Discharge - Discharge Clinical Impression: Sore throat (viral) URI (upper respiratory infection) Qualifiers: URI type: unspecified URI Qualified Code(s): J06.9 - Acute upper respiratory infection, unspecified Headache Qualifiers: Headache type: unspecified Headache chronicity pattern: unspecified pattern Intractability: not intractable Qualified Code(s): R51 - Headache Condition: Stable Disposition: HOME, SELF-CARE Instructions: Family Physicians / Practices, Use of Ccmy-Tsd-Kyxrher Ibuprofen ([facility]) Additional Instructions: UPPER RESPIRATORY ILLNESS: You have a viral infection of the respiratory passages -- a "cold." This common infection causes nasal congestion, drainage, and often sore throat and cough. It is highly contagious. The disease usually lasts about 10 to 14 days. There is no "cure" for the viral infection -- it must run its course. If there is a complication, such as bacterial infection in the nose, sinuses, middle ear, or bronchial tubes, antibiotics may be required. The antibiotics won't affect the virus. Drink plenty of fluids. A humidifier may help. An expectorant medication or decongestant may make you more comfortable. Use acetaminophen or ibuprofen for fever or aches. See the doctor if fever persists over two days, if there is any significant worsening of your symptoms, or if you simply fail to improve as expected. DECONGESTANT MEDICATION: A decongestant medicine has been suggested. Often this medicine is combined in the same tablet with an antihistamine or expectorant. This type of medicine is helpful in treating a bad cold or sinus condition, as well as in treatment of the nasal congestion of hay fever. It is not of much benefit for lung infections. Decongestant medicines are related to stimulants. They can cause an increase in blood pressure and heart rate. Persons with heart disease and high blood pressure should not take decongestants without discussing this with the physician. If you develop palpitations, chest pain, headache, or tremors, stop the medicine and consult your physician. COUGH-SUPPRESSANT & EXPECTORANT MEDICATION: You are to use a cough medication as needed for relief of symptoms. This medicine is a combination of an expectorant (to make the mucous thinner and more easily "coughed up") and a cough suppressant (to reduce the frequency of coughing). The cough-suppressant medicine is related to narcotics. You may experience mild nausea and sleepiness. Some patients who are very sensitive to narcotics may have stomach pain from this medicine. Taking the medicine with food reduces these side effects. Do not drive or work with machinery until you know how this medicine affects you. The expectorant should have no side effects. Iodine-containing expectorants (such as organidin) should not be taken by persons with active thyroid disease unless approved by your doctor. Call the doctor if you develop shortness of breath, hives, rash, itching, lightheadedness, or severe nausea and vomiting. USE OF ACETAMINOPHEN (Tylenol): Acetaminophen may be taken for pain relief or fever control. It's much safer than aspirin, offering a wider range of "safe" dosages. It is safe during . Some brand names are Tylenol, Panadol, Datril, Anacin 3, Tempra, and Liquiprin. Acetaminophen can be repeated every four hours. The following are maximum recommended dosages: >89 pounds or adults 650 mg to 900 mg Acetaminophen can be repeated every four hours. Maximum dose not to exceed 4000 mg a day. SMOKING: If you smoke, you should stop smoking. The tar and chemicals in cigarette smoke are harmful. Smoking has been shown to cause: emphysema chronic bronchitis lung cancer mouth and throat cancer stomach and pancreas cancer premature aging defects In addition, smoking increases ear and lung infections in children of smokers. You will treated with Claritin 10 mg, Sudafed 30 mg, Mucinex 600 mg, and ibuprofen 400 mg, The emergency room. These are all over the counter medications that you can use for your cough cold congestion. Flonase is another medication that would help with your cough and cold symptoms. Gargle with warm salt and soda solution the skin off to help with use: Cuff symptoms. Mix up a quart of solution leave it at the counter and then you can easily use a cold or slightly warm up a small amount and gargle with it. Salt and soda solution 1 quart of water 1 tablespoon of salt 1 teaspoon of baking soda Mixed 3 ingredients together and boil for 1 minute Placed in a covered quart jar Use 1/2 ounce of cold solution to gargle 3 times a day FOLLOW-UP CARE: If you have been referred to a physician for follow-up care, call the physician s office for an appointment as you were instructed or within the next two days. If you experience worsening or a significant change in your symptoms, notify the physician immediately or return to the Emergency Department at any time for re-evaluation. Forms: Smoking Cessation Education, Return to Work
[2018-03-26 16:30] VITALS: BP 113/56
== END 2018-03-26 16:31 | disposition home or self-care (01) ==
LOC: ER 14:54
DX: J02.8 Acute pharyngitis due to other specified organisms (principal); B97.89 Other viral agents as the cause of diseases classified elsewhere; R05 Cough; R51 Headache; J34.89 Other specified disorders of nose and nasal sinuses; F17.210 Nicotine dependence, cigarettes, uncomplicated; Z71.6 Tobacco abuse counseling; R09.82 Postnasal drip
CPT/HCPCS: 99406; 99283; J3490

== ENCOUNTER 2018-07-26 08:05 | Emergency (ER) | payer SELFPAY ==
--- NOTE | 2018-07-26 08:39 | ER Document Report ---
ED General - General Chief Complaint: Nausea/Vomiting Stated Complaint: VOMITING/FEVER Time Seen by Provider: 07/26/18 08:39 Notes: Patient is a 22-year-old female that presents to the emergency department for chief complaint of nausea, vomiting and fever. Patient reports that her symptoms started last night, she was feeling nauseous, then around 11 PM, she tried laying down in a hot bath, but did not not help, she was having body aches as well, she started having nausea and vomiting around 230 this morning, and felt worse this morning so she decided come to the emergency department. She has had generalized body aches, and abdominal cramping, but denies having any abdominal pain. Denies having any cough, chest pain, shortness of breath, she states her son had similar symptoms but they resolved in a day last week. Past Medical History: Denies chronic medical conditions Past Surgical History: Hernia surgery Social History: Admits to smoking cigarettes daily, denies alcohol or drug use Family History: Reviewed and noncontributory for presenting illness Allergies: Reviewed, see documented allergy list. REVIEW OF SYSTEMS: Other than noted above, the 12 point review of systems was reviewed with the patient and were negative, all pertinent findings are included in the HPI. PHYSICAL EXAMINATION: Vital signs reviewed, nursing noted reviewed. GENERAL: Well-appearing, well-nourished and in no acute distress. HEAD: Atraumatic, normocephalic. EYES: Eyes appear normal, extraocular movements intact, sclera anicteric, conjunctiva are normal. ENT: nares patent, oropharynx clear without exudates. Moist mucous membranes. NECK: Normal range of motion, supple without lymphadenopathy LUNGS: Breath sounds clear to auscultation bilaterally and equal. No wheezes rales or rhonchi. HEART: Regular rate and rhythm without murmurs ABDOMEN: Soft, mild discomfort with palpation, no focal tenderness, normoactive bowel sounds. No rebound, guarding, or rigidity. No masses appreciated. EXTREMITIES: Nontender, good range of motion, no pitting or edema. NEUROLOGICAL: No focal neurological deficits. Moves all extremities spontaneously Motor and sensory grossly intact on exam. PSYCH: Normal mood, normal affect. SKIN: Warm, Dry, normal turgor, no rashes or lesions noted on exposed skin TRAVEL OUTSIDE OF THE [place] IN LAST 30 DAYS: No - Related Data Allergies/Adverse Reactions: amoxicillin Allergy (Verified 07/26/18 08:10) clindamycin Allergy (Verified 07/26/18 08:10) Penicillins Allergy (Verified 07/26/18 08:10) sulfamethoxazole [From Bactrim] Allergy (Verified 07/26/18 08:10) trimethoprim [From Bactrim] Allergy (Verified 07/26/18 08:10) Past Medical History - Social History Smoking Status: Current Every Day Smoker Family History: CAD, COPD, DM, Hyperlipidemia, Hypertension - Past Medical History Cardiac Medical History: Denies: Hx DVT Endocrine Medical History: Denies: Hx Diabetes Mellitus Type 1, Hx Diabetes Mellitus Type 2 Renal/ Medical History: Denies: Hx Ectopic , Hx Peritoneal Dialysis Psychiatric Medical History: Reports: Hx Depression - depression Past Surgical History: Reports: Hx Abdominal Surgery - hernia, Hx Cardiac Surgery - vsd repair, Hx Herniorrhaphy, Hx Umbilical Hernia - Immunizations Hx Diphtheria, Pertussis, Tetanus Vaccination: No Physical Exam - Vital signs Vitals: Temp Pulse Resp BP Pulse Ox 97.9 F 71 16 116/71 99 07/26/18 08:11 07/26/18 08:11 07/26/18 08:11 07/26/18 08:11 07/26/18 08:11 Course - Re-evaluation Re-evalutation: Patient seen and examined vital signs reviewed. Laboratory data and imaging were ordered as appropriate for the patient's presenting symptoms and complaint, with consideration of any critical or life threatening conditions that may be associated with their obtained history and exam as noted above. Patient was treated with oral Zofran, tolerated p.o. Results were reviewed when available and demonstrated UA was not convincing of urinary tract infection, and influenza was negative The patient was re-evaluated and was improved and felt comfortable being discharged Evaluation was most consistent with nausea and vomiting, patient prescribed Zofran to take if needed. Results were discussed with the patient at this point, after careful consideration I feel that that patient can be discharged from the emergency department, the patient was educated treatments and reasons to return to the emergency department based on their presumed diagnosis as noted above, they were advised to followup with a primary care physician in 2-3 days. Patient was agreeable to plan of care. *Note is created using voice recognition software and may contain spelling, syntax or grammatical errors. Laboratory 07/26/18 07/26/18 08:15 09:30 Urine Color YELLOW Urine Appearance SLIGHTLY-CLOUDY Urine pH 6.0 Ur Specific [place] 1.021 Urine Protein NEGATIVE Urine Glucose (UA) NEGATIVE Urine Ketones NEGATIVE Urine Blood SMALL H Urine Nitrite NEGATIVE Urine Bilirubin NEGATIVE Urine Urobilinogen 2.0 H Ur Leukocyte Esterase NEGATIVE Urine WBC (Auto) 21 Urine RBC (Auto) 17 Urine Bacteria (Auto) TRACE Squamous Epi Cells Auto 39 Urine Mucus (Auto) FEW Urine Ascorbic Acid NEGATIVE Urine HCG, Qual NEGATIVE Influenza A (Rapid) NEGATIVE Influenza B (Rapid) NEGATIVE - Vital Signs Vital signs: Temp Pulse Resp BP Pulse Ox 99.2 F 56 L 16 104/56 L 98 07/26/18 11:24 07/26/18 11:24 07/26/18 08:11 07/26/18 11:24 07/26/18 11:24 - Laboratory Laboratory results interpreted by me: 07/26/18 08:15 Urine Blood SMALL H Urine Urobilinogen 2.0 H Discharge - Discharge Clinical Impression: Nausea and vomiting Qualifiers: Vomiting type: unspecified Vomiting Intractability: non-intractable Qualified Code(s): R11.2 - Nausea with vomiting, unspecified Condition: Stable Disposition: HOME, SELF-CARE Instructions: Vomiting ([facility]) Additional Instructions: Please return to the emergency department if you have any worsening, or concern of your symptoms. Please return to the emergency department if you develop chest pain, difficulty breathing, severe abdominal pain, or ongoing vomiting. Please follow-up with your primary care physician in 2-3 days and any other recommended physicians. If prescribed, take all medications as directed. If you have any questions or concerns do not hesitate to return the emergency department for evaluation. Prescriptions: Ondansetron [Zofran Odt 4 mg Tablet] 1 tab PO Q8H PRN #15 tab.rapdis PRN Reason: For Nausea/Vomiting Forms: Return to Work Referrals: CLEOPATRA BENNETT MD [ACTIVE STAFF] - Follow up in 3-5 days (or your primary care. )
[2018-07-26] MEDS ORDERED: NORMAL SALINE 1000 ML 1,000 ML IV ONE (09:09)
[2018-07-26] MEDS ORDERED: ONDANSETRON HCL INJ/PF 4 MG/2 ML SDV IV ONE (09:09)
[2018-07-26] MEDS ORDERED: ONDANSETRON 4 MG TAB.RAPDIS PO ONE (09:20)
[2018-07-26 09:50] LABS: APPEARANCE,URINE SLIGHTLY-CLOUDY; BILIRUBIN,URINE NEGATIVE (NEGATIVE); COLOR,URINE YELLOW; GLUCOSE, URINE NEGATIVE (NEGATIVE); KETONES,URINE NEGATIVE (NEGATIVE); LEUKOCYTE ESTERASE,URINE NEGATIVE (NEGATIVE); NITRITE,URINE NEGATIVE (NEGATIVE); PROTEIN,URINE NEGATIVE (NEGATIVE); URINE SPECIFIC GRAVITY 1.021
[2018-07-26 11:08] LABS: A TYPE INFLUENZA AG NEGATIVE (NEGATIVE); B INFLUENZA AG NEGATIVE (NEGATIVE)
[2018-07-26 11:27] VITALS: BP 104/56
== END 2018-07-26 11:37 | disposition home or self-care (01) ==
LOC: ER 08:05
DX: R11.2 Nausea with vomiting, unspecified (principal); R50.9 Fever, unspecified; M79.10 Myalgia, unspecified site; R10.9 Unspecified abdominal pain; F17.210 Nicotine dependence, cigarettes, uncomplicated
CPT/HCPCS: 99283; 81025; 81001; 87804; S0119

== ENCOUNTER 2018-09-20 09:39 | Observation (INO) | payer BC, MEDICAID ==
[2018-09-10 10:50] LABS: APPEARANCE,URINE CLOUDY; BILIRUBIN,URINE NEGATIVE (NEGATIVE); COLOR,URINE YELLOW; GLUCOSE, URINE NEGATIVE (NEGATIVE); KETONES,URINE NEGATIVE (NEGATIVE); LEUKOCYTE ESTERASE,URINE NEGATIVE (NEGATIVE); NITRITE,URINE NEGATIVE (NEGATIVE); PROTEIN,URINE NEGATIVE (NEGATIVE); URINE SPECIFIC GRAVITY 1.019
[2018-09-10 11:01] LABS: HEMATOCRIT 42.9 % (36.0-47.0); HEMOGLOBIN 15.3 g/dL (12.0-15.5); MEAN CORPUSCULAR HEMOGLOBIN 32.3 pg (27.0-33.4); MEAN CORPUSCULAR HGB CONC 35.6 g/dL (32.0-36.0); MEAN CORPUSCULAR VOLUME 91 fl (80-97); PLATELET COUNT 142 10^3/uL (150-450); RED BLOOD COUNT 4.73 10^6/uL (3.72-5.28); RED CELL DISTRIBUTION WIDTH 12.8 % (11.5-14.0)
[~2018-09-20 09:39] MED LIST: LACTATED RINGERS 1000 ML IV PRN; LIDOCAINE 0.5% INJ-PF (5 MG/ML) 50 ML SDV SUBCUT PRN
[2018-09-20] MEDS ORDERED: MIDAZOLAM 2 MG/2 ML INJ ONE (10:30)
[2018-09-20] MEDS ORDERED: FENTANYL CITRATE INJ/PF 100 MCG/2 ML AMPUL ONE ×2 (10:30→15:07)
[2018-09-20] MEDS ORDERED: KETOROLAC TROMETHAMINE 60 MG/2 ML SDV ONE (10:30)
[2018-09-20] MEDS ORDERED: PROPOFOL INJ 200 MG/20 ML VIAL IV ONE (10:30)
[2018-09-20] MEDS ORDERED: ALBUTEROL SULFATE 0.083% NEB 2.5 MG/3 ML AMPUL NEB ONE (10:37)
[2018-09-20] MEDS ORDERED: SCOPOLAMINE HYDROBROMIDE 1.5 MG PATCH.TD72 ONE (10:40)
[2018-09-20] MEDS ORDERED: FAMOTIDINE INJ/PF 20 MG/2 ML SDV IV ONE (10:40)
[2018-09-20] MEDS ORDERED: SCOPOLAMINE HYDROBROMIDE 1.5 MG PATCH.TD72 TD PRN (10:41)
[2018-09-20] MEDS ORDERED: RINGERS SOLUTION,LACTATED 1,000 ML IV PRN (10:42)
[2018-09-20] MEDS ORDERED: FAMOTIDINE INJ/PF 20 MG/2 ML SDV IV PRN (10:43)
[2018-09-20] MEDS ORDERED: BUPIVACAINE HCL 0.25 % INJ/PF (2.5 MG/1 ML) 30 ML VIAL ONE (11:22)
[2018-09-20] MEDS ORDERED: RINGERS SOLUTION,LACTATED 1,000 ML IV ONE (11:30)
[2018-09-20] MEDS ORDERED: FENTANYL CITRATE INJ/PF 100 MCG/2 ML AMPUL IV PRN ×3 (14:07)
[2018-09-20] MEDS ORDERED: SUCCINYLCHOLINE CHLORIDE INJ 200 MG/10 ML VIAL ONE (14:34)
[2018-09-20] MEDS ORDERED: ESMOLOL HCL INJ/PF 100 MG/10 ML SDV IV ONE (14:57)
[2018-09-20] MEDS: DILTIAZEM HCL INJ 25 MG/5 ML VIAL ONE ×2 (15:06→15:10)
[2018-09-20] MEDS ORDERED: ACETAMINOPHEN 1,000 MG/100 ML RTUPB IV ONE (15:07)
--- NOTE | 2018-09-20 15:08 | OPERATIVE REPORT E ---
Operative Report NAME: WILBERT MELGAR : 1995 AGE: 22Y DATE OF SURGERY: 09/20/2018 ROOM: PREOPERATIVE DIAGNOSIS: DESIRES STERILIZATION. POSTOPERATIVE DIAGNOSIS: DESIRES STERILIZATION. OPERATION: BILATERAL TUBAL OCCLUSION USING FILSHIE CLIPS. ESTIMATED BLOOD LOSS: Negligible. SURGEON: Satnam MCGEE M.D. ANESTHESIA: General. TISSUE REMOVED OR ALTERED: None. PROCEDURE: The patient was placed in a dorsal lithotomy position, prepped and draped in sterile fashion. Speculum was placed. Cervix was visualized and grasped with a single-tooth tenaculum. The IUD which was present was removed, and Hulka tenaculum was placed. The single-tooth tenaculum was removed. The bladder was drained with a catheter, and attention turned to the umbilicus, where a midline incision was made. Trocar was introduced and insufflation of the abdomen for visualization of the tubes, uterus, and ovaries. The right fallopian tube was occluded in the mid portion using a Filshie clip. The procedure was repeated on the left. Both tubes identified through the fimbria prior to and after banding. No other abnormalities were noted. The laparoscope was removed. The abdomen was deflated. Trocar sleeve was removed. The incision was closed with 0 Vicryl in the fascia and 4-0 Vicryl subcu. The patient tolerated the procedure well and sent to the recovery room in good condition. DICTATING PHYSICIAN: Satnam MCGEE M.D. [id number] PHY#: [id number] ID: [id number] JOB#: [id number] ACCT: [id number] cc:Satnam MCGEE M.D. >
[2018-09-20] MEDS ORDERED: DILTIAZEM HCL/D5W 125 MG/125 ML RTUINJ IV ONE (15:13)
[2018-09-20] MEDS ORDERED: ONDANSETRON HCL INJ/PF 4 MG/2 ML SDV ONE (16:01)
[2018-09-20] MEDS ORDERED: METOCLOPRAMIDE HCL INJ/PF 10 MG/2 ML SDV ONE (16:02)
[2018-09-20 16:41] LABS: PHOSPHORUS 3.9 mg/dL (2.5-4.5); POTASSIUM 3.6 mmol/L (3.6-5.0); SODIUM 139.3 mmol/L (137-145)
[2018-09-20] MEDS ORDERED: DILTIAZEM HCL/D5W 125 MG/125 ML RTUINJ IV PRN (18:04)
[2018-09-20 19:35] LABS: FREE T3 4.28 pg/mL (2.77-5.27); FREE T4 (FREE THYROXINE) 1.53 ng/dL (0.78-2.19)
[2018-09-20 19:49] LABS: THYROID STIMULATING HORMONE 2.47 uIU/mL (0.47-4.68)
--- NOTE | 2018-09-20 21:13 | EKG REPORT ---
SEVERITY:- ABNORMAL ECG - ATRIAL FIBRILLATION, V-RATE 79-126 : Confirmed by: Maria Luz Ramos MD 20-Sep-2018 21:12:32
--- NOTE | 2018-09-20 21:13 | EKG REPORT ---
SEVERITY:- ABNORMAL ECG - ATRIAL FIBRILLATION, V-RATE 49-59 BORDERLINE T WAVE ABNORMALITIES : Confirmed by: Maria Luz Ramos MD 20-Sep-2018 21:12:45
--- NOTE | 2018-09-20 21:13 | EKG REPORT ---
SEVERITY:- ABNORMAL ECG - BORDERLINE RIGHT AXIS DEVIATION ATRIAL FIBRILLATION : Confirmed by: Maria Luz Ramos MD 20-Sep-2018 21:13:10
--- NOTE | 2018-09-20 21:16 | PDOC CONSULTATION ---
Consultation-Blank Consultation: CARDIOLOGY CONSULTATION by Dr. Maria Luz Ramos on 09/20/2018 patient seen at 5 PM on 09/20/2018. REASON FOR CONSULTATION: New onset atrial fibrillation. HISTORY OF PRESENT ILLNESS: Patient is a 22-year-old female who just had her tubal ligation procedure done. During intubation the patient was seen to go into atrial fibrillation with rapid ventricular response. She no sympathomimetic agents per used as per anesthesiology. She was given esmolol, and subsequently started on a Cardizem drip. At present the heart rate is 65- 70. The patient denies any palpitations. She complains of nausea. There is no prior history of atrial fibrillation as per the patient. The patient denies any chest pain or shortness of breath there is no PND orthopnea. She does have nausea. PAST MEDICAL HISTORY: The patient has a history of depression. Now this is resolved. She has no history of hypertension or diabetes mellitus. 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 Probably it is a PFO. There is no history of asthma or COPD. The patient does smoke. There is no history of thyroid disease. There are no history of chronic kidney disease. PAST SURGICAL HISTORY: History of surgery for wisdom teeth. She had umbilical hernia surgery when an infant. And she has had tubal ligation today. FAMILY HISTORY: Is negative for any cardiac arrhythmia or sudden or coronary artery disease. SOCIAL HISTORY: The patient is a smoker. There is no history of EtOH abuse. There is no history of street drug abuse. ALLERGIES: She is allergic to amoxicillin, clindamycin penicillins, sulfa and trimethoprim. Disposition: The patient is a full code her is surrogate healthcare decision maker. REVIEW SYSTEMS: CONSTITUTIONAL: Denies any fever chills or rigors. No history of malaise or fatigue. EYES: No history of amblyopia diplopia. No history of amaurosis fugax. HEAD: No history of headaches or head injury. EARS: No history of hearing loss. No history of recurrent ear infections. No tinnitus. NOSE: No history of hayfever. No history of nasal polyps. No history of nosebleeds. MOUTH: No history of altered taste sensation. No ulcers in the mouth. No bleeding from the gums. THROAT: No history of odynophagia dysphagia no history of recurrent sore throats. SKIN: No history of pruritus. No history of jaundice. No history of psoriasis or skin cancer. NECK: No history of neck pain. No history of goiter. LUNGS: No history of asthma or COPD. No history of sleep apnea. No history of pulmonary embolism. No symptoms of upper or lower respiratory tract infection. No pleuritic chest pain. No hemoptysis. HEART: History of most likely a PFO with spontaneous closure when she was a child. No history of hypertension. No prior history of atrial fibrillation. There is no history of heart failure. There is no syncope. There is no history of palpitations. No prior history of leg edema. GI: No history of GI bleed no history of GERD. No history of peptic ulcer disease. No history of altered bowel movements. No history of fatty food intolerance. No abdominal pain ENDOCRINE: No history of thyroid disease. No history of diabetes mellitus. No history of polydipsia polyuria no history of heat or cold intolerance no history of hirsutism. No history of excessive sweating. RENAL: No history of chronic kidney disease. No history of hematuria pyuria or dysuria. No history of recurrent urinary tract infections. MUSCULOSKELETAL: Denies arthritis or collagen vascular disease. 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 No history of headaches migraines or seizures. PSYCHIATRIC: History of depression present she states this is resolved. No history of anxiety. No history of suicidal ideation or homicidal ideation. VASCULAR: No history of peripheral vascular disease. No history of DVT. HEMATOLOGICAL. No history of bleeding diathesis. No history of clotting disorders. PHYSICAL EXAMINATION: The patient is frail build, but well-nourished. She is well-groomed. In no acute distress. Selected Entries 09/20/18 09/20/18 09/20/18 09:45 10:56 14:34 Temperature 97.4 F Temperature Source Pulse Rate 88 Respiratory 12 Rate Blood Pressure 121/56 L Blood Pressure Mean BP Location BP Position O2 Sat by Pulse 99 Oximetry Oxygen Delivery Room Air Method ( includes room air) Fraction of 21 Inspired Oxygen (FIO2) Oxygen Delivery Method 09/20/18 23:57 Temperature 98.3 F Temperature Oral Source Pulse Rate 89 Respiratory 18 Rate Blood Pressure 103/69 Blood Pressure 80 Mean BP Location Left Arm BP Position Supine O2 Sat by Pulse 93 Oximetry Oxygen Delivery Method ( includes room air) Fraction of Inspired Oxygen (FIO2) Oxygen Delivery Room Air Method HEAD: Is atraumatic normocephalic. EYES: Pupils equal round regular react to light accommodation. Extraocular movements are normal. There is no clinical pallor. THERE IS NO SCLERAL ICTERUS. EARS: TYMPANIC MEMBRANES ARE INTACT EXTERNAL AUDITORY CANALS ARE CLEAR. Nose: There is no inflammation of the nasal mucous membrane. There is no nasal polyps. MOUTH: His membranes of mouth are moist tongue is moist. There is no ulcers there is no bleeding from the gums. THROAT: There is no exudates in the throat. There is no redness of the oropharynx. SKIN: There is no petechia or ecchymosis. There is no skin rashes or skin lesions. NECK: Is supple. There is no JVD. Carotids are equal there is no bruit. There is no lymphadenopathy. There is no goiter. There is no accessory muscle respiration in use. There is no lymphadenopathy. LUNGS: Is clear to auscultation percussion without any rhonchi rales or wheezing. There is no chest wall tenderness. HEART: S1-S2 is heard there is no S3 gallop there is no S4 gallop S1 is of variable intensity. There is a systolic murmur left sternal border and apex without radiation. There is no rub. ABDOMEN: Soft there is no hepatosplenic megaly. Bowel sounds are well heard. Her surgical site dressing is clean and dry. EXTREMITIES: Femorals are well felt. There is no femoral bruits. Leg pulses are well felt. There is no pedal edema. There is no DVT or cellulitis. There is no calf tenderness. There is no cyanosis or clubbing. Capillary refill is normal. 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 There is no focal deficit. She is oriented x3. PSYCHIATRIC: The patient judgment and insight are intact her affect is normal. 09/10/18 09/20/18 09/20/18 09:24 09:56 15:49 WBC 6.0 RBC 4.73 Hgb 15.3 Hct 42.9 MCV 91 MCH 32.3 MCHC 35.6 RDW 12.8 Plt Count 142 L Sodium 139.3 Potassium 3.6 Chloride 104 Carbon Dioxide 27 Anion Gap 8 POC Glucose 74 Phosphorus 3.9 Magnesium 1.8 TSH Free T4 Free T3 pg/mL 09/20/18 09/20/18 15:49 16:03 WBC RBC Hgb Hct MCV MCH MCHC RDW Plt Count Sodium Potassium Chloride Carbon Dioxide Anion Gap POC Glucose 106 Phosphorus Magnesium TSH 2.47 Free T4 1.53 Free T3 pg/mL 4.28 Home Meds Table No Home Medications 09/20/18. EKG: The Patient's 3 EKG Shows Atrial Fibrillation. Impression/RECOMMENDATION: 1. New onset atrial fibrillation: In view of the patient's heart rate being 65 would discontinue the patient's Cardizem and observe the patient. In view of the patient's age and lack of any major risk factors would recommend starting the patient on aspirin for anticoagulation. Will observe the patient on telemetry to see if the patient converts to sinus rhythm. Patient's thyroid function is normal. 2. History of possible PFO with spontaneous closure. We will get an echo to assess for presence of intracardiac shunts and or presence of pulmonary hypertension. 3. History of depression. 4. History of tobacco abuse: Tobacco cessation counseling has been given. Will we will reconsult the patient in the morning, since the patient is still under slight effects of anesthesia. Medications reviewed: Discussed with the other caregiving providers on the case. Medical decision making is of moderate complexity. Note 50 minutes spent on this patient more than 50% time spent in direct patient care.
[2018-09-20] MEDS ORDERED: ONDANSETRON 4 MG TAB.RAPDIS PO PRN (22:00)
[2018-09-20] MEDS: IBUPROFEN 800 MG TABLET PO SCH (22:26)
[2018-09-21] MEDS: IBUPROFEN 800 MG TABLET PO SCH ×3 (05:12→21:09)
--- NOTE | 2018-09-21 09:08 | EKG REPORT ---
SEVERITY:- ABNORMAL ECG - ATRIAL FIBRILLATION BORDERLINE RIGHT AXIS DEVIATION : Confirmed by: Maria Luz Ramos MD 21-Sep-2018 09:07:29
[2018-09-21] MEDS: OXYCODONE-ACETAMINOPHEN 5-325 MG TABLET PO PRN ×2 (09:45→19:05)
--- NOTE | 2018-09-21 14:22 | PDOC PROGRESS REPORT ---
Subjective Progress Note for:: 09/21/18 Subjective:: doing well. mild soreness at surgical sites only. Has referred shoulder pain from CO2 insuflation. Reason For Visit: NEW ONSET ATRIAL FIBRILLATION Physical Exam - Physical Exam Vital Signs: Temp Pulse Resp BP Pulse Ox 99.0 F 99 18 115/72 98 09/21/18 11:01 09/21/18 11:01 09/21/18 11:01 09/21/18 11:01 09/21/18 11:01 Intake & Output 09/20/18 09/21/18 09/22/18 06:59 06:59 06:59 Intake Total 1911 Output Total 0 Balance 1911 Weight 37.5 kg General appearance: PRESENT: no acute distress, cooperative - abdominal incisions well healed Result Laboratory Results: 09/10/18 09:24 09/20/18 15:49 09/20/18 09/20/18 15:49 15:49 Sodium 139.3 Potassium 3.6 Chloride 104 Carbon Dioxide 27 Anion Gap 8 Phosphorus 3.9 Magnesium 1.8 TSH 2.47 Free T4 1.53 Free T3 pg/mL 4.28 Assessment & Plan - Diagnosis (1) Atrial fibrillation Is this a current diagnosis for this admission?: Yes - Time Time Spent with patient: Less than 15 minutes Smoking Cessation Education: 3 to 10 minutes Medications reviewed and adjusted accordingly: No Anticipated discharge: Home Within: within 24 hours - Plan Summary Plan Summary: thank you to Dr. Mack with Cardiology for assist with managing patient. Will continue care based on his recommendations.
[2018-09-21] MEDS ORDERED: METOPROLOL SUCCINATE 25 MG TAB.SR.24H PO ONE (14:45)
--- NOTE | 2018-09-21 22:21 | Progress Note ---
Provider Note Provider Note: CARDIOLOGY PROGRESS NOTE by Dr. Maria Luz Ramos on 09/21/2018. SUBJECTIVE: The patient with the metoprolol converted to sinus rhythm. She denies any chest pain or discomfort. There is no shortness of breath. There is no PND orthopnea. There is no TIA CVA symptoms. Her tubal ligation surgical pains well controlled with medication. PHYSICAL EXAMINATION: The patient is of frail build, but well-nourished. She is in no acute distress. She is well-groomed. Selected Entries 09/21/18 09/21/18 09/21/18 16:14 19:00 19:35 Temperature 98.4 F 97.7 F Temperature Oral Oral Source Pulse Rate 62 58 L Respiratory 16 14 Rate Blood Pressure 97/63 L 90/48 L Blood Pressure 74 62 Mean BP Location Left Arm Left Arm BP Position Supine Supine O2 Sat by Pulse 99 97 Oximetry Oxygen Delivery Room Air Room Air Method HEAD: Is atraumatic normocephalic. EYES: Pupils equal round regular react to light accommodation. Extraocular movements are normal. There is no clinical pallor. THERE IS NO SCLERAL ICTERUS. EARS: TYMPANIC MEMBRANES ARE INTACT EXTERNAL AUDITORY CANALS ARE CLEAR. Nose: There is no inflammation of the nasal mucous membrane. There is no nasal polyps. MOUTH: His membranes of mouth are moist tongue is moist. There is no ulcers there is no bleeding from the gums. THROAT: There is no exudates in the throat. There is no redness of the oropharynx. SKIN: There is no petechia or ecchymosis. There is no skin rashes or skin lesions. NECK: Is supple. There is no JVD. Carotids are equal there is no bruit. There is no lymphadenopathy. There is no goiter. There is no accessory muscle respiration in use. There is no lymphadenopathy. LUNGS: Is clear to auscultation percussion without any rhonchi rales or wheezing. There is no chest wall tenderness. HEART: S1-S2 is heard there is no S3 gallop there is no S4 gallop S1 is of normal intensity. There is a systolic murmur left sternal border and apex without radiation. There is no rub. ABDOMEN: Soft there is no hepatosplenic megaly. Bowel sounds are well heard. Her surgical site dressing is clean and dry. EXTREMITIES: Femorals are well felt. There is no femoral bruits. Leg pulses are well felt. There is no pedal edema. There is no DVT or cellulitis. There is no calf tenderness. There is no cyanosis or clubbing. Capillary refill is normal. 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 There is no focal deficit. She is oriented x3. PSYCHIATRIC: The patient judgment and insight are intact her affect is normal. 09/20/18 15:49 TSH 2.47 Free T4 1.53 Free T3 pg/mL 4.28 The patient's echocardiogram shows a normal LV ejection fraction, no evidence of intracardiac shunts. No significant valvular lesions. [See report]. This was discussed with the patient. IMPRESSION RECOMMENDATION: 1. Paroxysmal atrial fibrillation: Patient now in sinus rhythm. Most likely secondary to the patient's intubation causing reflex tachycardia/atrial fibrillation with a rapid ventricular response. This is resolved. Would recom mend that the patient have a 30-day event monitor at home to see if there is any recurrence of atrial fibrillation, since the patient states that she has a strong family history of atrial fibrillation. Also will observe the patient's heart rate response to beta-casandra to see if this needs to be continued. Recommend continue aspirin 81 mg p.o. nightly. 2. History of possible PFO, with spontaneous closure as per history. Echo does not show any recurrence of this. 3. History of depression: At present resolved. 4. History of tobacco abuse: Tobacco cessation counseling given 3 minutes spent on this. Medications reviewed. Discussed with the FERN CUTTER the management plan. Most likely patient will be discharged in the a.m. Will reassess the patient in the morning. 40 minutes spent on this patient more than 50% of time spent in direct patient care.
--- NOTE | 2018-09-21 23:01 | EKG REPORT ---
SEVERITY:- NORMAL ECG - SINUS RHYTHM : Confirmed by: Maria Luz Ramos MD 21-Sep-2018 22:59:36
--- NOTE | 2018-09-21 23:23 | XCELERA REPORT ---
[address] [address] Transthoracic Echocardiogram Report Name: WILBERT MELGAR Age: 22 yrs Gender: Female : 1995 Patient Status: Inpatient Patient Location: [facility]^A Study Date: 09/21/2018 10:02 AM Height: 59 in Weight: 83 lb BSA: 1.3 m2 Procedure: A two-dimensional transthoracic echocardiogram with color flow and Doppler was performed. The study was technically limited with all images being suboptimal in quality. Reason For Study: ATRIAL fIB /h/O PFO History: ATRIAL FIBRILLATION / h/O PFO. Ordering Physician: MARIA LUZ JONES Performed By: Nehemias Couch Interpretation Summary The left ventricle is normal in size. There is normal left ventricular wall thickness. LV EF is > THAN 60% The left ventricular wall motion is normal. There is no thrombus. There is no ventricular septal defect visualized. The right ventricle is normal in size and function. The right atrium is normal. The left atrial size is normal. The interatrial septum is intact with no evidence for an atrial septal defect. There is no Doppler evidence for an interatrial shunt There is no evidence of mitral valve prolapse. There is no vegetation seen on the mitral valve. There is no mitral valve stenosis. There is a trace amount of mitral regurgitation There is no aortic valvular vegetation. There is no aortic valve stenosis No aortic regurgitation is present. There is no LVOT obstruction. There is no tricuspid stenosis. There is a trace to mild amount of tricuspid regurgitation Right ventricular systolic pressure is normal. rvsp IS 25 TO 30 MM OF hG , WITH ra MEAN O 5 TO 10. There is no pulmonic valvular stenosis. There is no pulmonic valvular regurgitation. The aortic root is normal size. The inferior vena cava appeared normal and decreased > 50% with respiration (RAP 5-10 mmHg) There is no pericardial effusion. MMode/2D Measurements & Calculations RVDd: 1.8 cm LVIDd: 4.1 cm FS: 31.7 % Ao root diam: 2.3 cm IVSd: 0.59 cm LVIDs: 2.8 cm EDV(Teich): 73.8 ml Ao root area: 4.1 cm2 LVPWd: 0.56 cm ESV(Teich): 29.4 ml LA dimension: 2.2 cm EF(Teich): 60.2 % Doppler Measurements & Calculations MV E max marcie: MV P1/2t max marcie: Ao V2 max: LV V1 max P.3 cm/sec 105.9 cm/sec 93.0 cm/sec 2.7 mmHg MV A max marcie: MV P1/2t: 50.0 msec Ao max P.5 mmHg LV V1 max: 57.2 cm/sec MVA(P1/2t): 4.4 cm2 82.3 cm/sec MV E/A: 1.7 MV dec slope: 620.0 cm/sec2 MV dec time: 0.12 sec PA V2 max: TR max marcie: MV P1/2t-pr_phl: 68.6 cm/sec 220.8 cm/sec 50.0 msec PA max PG: TR max P.5 mmHg 1.9 mmHg Left Ventricle The left ventricle is normal in size. There is normal left ventricular wall thickness. LV EF is > THAN 60%. LV diastolic function could not be adequately assessed due to atrial fibrilation. The left ventricular wall motion is normal. There is no thrombus. There is no ventricular septal defect visualized. Right Ventricle The right ventricle is normal in size and function. Atria The right atrium is normal. The left atrial size is normal. The interatrial septum is intact with no evidence for an atrial septal defect. There is no Doppler evidence for an interatrial shunt. Mitral Valve There is no evidence of mitral valve prolapse. There is no vegetation seen on the mitral valve. There is no mitral valve stenosis. There is a trace amount of mitral regurgitation. Aortic Valve There is no aortic valvular vegetation. There is no aortic valve stenosis. There is no LVOT obstruction. No aortic regurgitation is present. Tricuspid Valve There is no tricuspid stenosis. There is a trace to mild amount of tricuspid regurgitation. Right ventricular systolic pressure is normal. rvsp IS 25 TO 30 MM OF hG , WITH ra MEAN O 5 TO 10. Pulmonic Valve There is no pulmonic valvular stenosis. There is no pulmonic valvular regurgitation. Great Vessels The aortic root is normal size. The inferior vena cava appeared normal and decreased > 50% with respiration (RAP 5-10 mmHg). Effusions There is no pericardial effusion. : MARIA LUZ JONES > Maria Luz Jones
[2018-09-22] MEDS: OXYCODONE-ACETAMINOPHEN 5-325 MG TABLET PO PRN (00:52)
[2018-09-22] MEDS: IBUPROFEN 800 MG TABLET PO SCH (05:46)
[2018-09-22 08:58] VITALS: BP 106/58
--- NOTE | 2018-09-22 09:45 | PDOC PROGRESS REPORT ---
Subjective Progress Note for:: 09/22/18 Subjective:: No complaints. wants to go home. Reason For Visit: AFIB WITH RVR Sen by coater hand, OK for discharge Physical Exam - Physical Exam Vital Signs: Temp Pulse Resp BP Pulse Ox 98.3 F 60 17 106/58 L 100 09/22/18 08:00 09/22/18 08:00 09/22/18 08:00 09/22/18 08:00 09/22/18 08:00 Intake & Output 09/21/18 09/22/18 09/23/18 06:59 06:59 06:59 Intake Total 1911 540 Output Total 0 Balance 1911 540 Weight 37.5 kg Result Laboratory Results: 09/10/18 09:24 09/20/18 15:49 Assessment & Plan - Plan Summary Plan Summary: Home, to follow up with coater hand in one week
--- NOTE | 2018-09-22 22:06 | Progress Note ---
Provider Note Provider Note: CARDIOLOGY PROGRESS NOTE by Dr. Maria Luz Valadez on 09/22/2018. SUBJECTIVE: Last night the patient was bradycardic with a heart rate in the 40s, although she had no symptoms. Her blood pressure was stable. At present the patient remains in sinus rhythm. There is no chest pain or discomfort. There is no shortness of breath. There is no PND orthopnea. There is no leg edema. There is no TIA CVA symptoms. There is no cough or shortness of breath or wheezing. SUBJECTIVE: The patient is a frail build. She is well-nourished. She is well- groomed. She is in no acute distress. Selected Entries 09/22/18 09/22/18 08:00 10:17 Temperature 98.3 F 98.3 F Temperature Oral Source Pulse Rate 60 60 Respiratory 17 17 Rate Blood Pressure 106/58 L 106/58 L [Left] Blood Pressure 74 Mean [Left] Blood Pressure Supine Position [Left] O2 Sat by Pulse 100 100 Oximetry Oxygen Delivery Room Air Method ( includes room air) HEAD: Is atraumatic normocephalic. EYES: Pupils equal round regular react to light accommodation. Extraocular movements are normal. There is no clinical pallor. THERE IS NO SCLERAL ICTERUS. EARS: TYMPANIC MEMBRANES ARE INTACT EXTERNAL AUDITORY CANALS ARE CLEAR. Nose: There is no inflammation of the nasal mucous membrane. There is no nasal polyps. MOUTH: His membranes of mouth are moist tongue is moist. There is no ulcers there is no bleeding from the gums. THROAT: There is no exudates in the throat. There is no redness of the oropharynx. SKIN: There is no petechia or ecchymosis. There is no skin rashes or skin lesions. NECK: Is supple. There is no JVD. Carotids are equal there is no bruit. There is no lymphadenopathy. There is no goiter. There is no accessory muscle respiration in use. There is no lymphadenopathy. LUNGS: Is clear to auscultation percussion without any rhonchi rales or wheezing. There is no chest wall tenderness. HEART: S1-S2 is heard there is no S3 gallop there is no S4 gallop S1 is of normal intensity. There is a systolic murmur left sternal border and apex without radiation. There is no rub. ABDOMEN: Soft there is no hepatosplenic megaly. Bowel sounds are well heard. Her surgical site dressing is clean and dry. EXTREMITIES: Femorals are well felt. There is no femoral bruits. Leg pulses are well felt. There is no pedal edema. There is no DVT or cellulitis. There is no calf tenderness. There is no cyanosis or clubbing. Capillary refill is normal. SURGICAL ASSIST: The patient is conscious slightly drowsy due to anesthetic effect. There is no focal deficit. She is oriented x3. PSYCHIATRIC: The patient judgment and insight are intact her affect is normal. The patient's EKG yesterday evening showed sinus rhythm. Within normal limits. IMPRESSION/RECOMMENDATION: 1. Paroxysmal atrial fibrillation: Resolved. No recurrence. The patient is bradycardic with a beta-casandra Hence we will stop the beta-casandra casandra, and continue the patient on aspirin only. We will get a 30-day event monitor as an outpatient to see if there is any recurrence of atrial fibrillation. This has been discussed with the RECOVERY OPERATOR HELPER attending physician on the case. 2. History of possible PFO status post closure especially history. No evidence of recurrence of intracardiac shunt by echo. 3. History of depression: Resolved 4. History of tobacco abuse: Reinforced the need to stop smoking, with explanation of the ill effects of tobacco. Medications reviewed. Medical decision making is of moderate complexit 30 minutes spent on this patient with more than 50% time spent in direct patient care. Discussed with attending physician management plan. Patient's cardiac status is stable for discharge. We will follow the patient up in the outpatient after the 30-day event monitor. The patient has my cell phone number to call me if she has any cardiac problems. Will sign off
--- NOTE | 2018-09-23 10:12 | DISCHARGE SUMMARY E ---
Discharge Summary NAME: WILBERT MELGAR : 1995 AGE: 22Y ADMITTED: 09/20/2018 DISCHARGED: 09/22/2018 FINAL DIAGNOSIS: ATRIAL FIBRILLATION. HISTORY OF PRESENT ILLNESS: The patient is a 22-year-old who recently had a bilateral laparoscopic tubal ligation who was found to have asymptomatic atrial fibrillation. Patient was admitted and cardiology consulted. HOSPITAL COURSE: Workup was negative which included a negative echo. Patient was begun on a beta casandra which she could not tolerate secondary to bradycardia. It was subsequently stopped and patient did well. She was discharged home on a baby aspirin a day and is to follow cardiology in 1 to 2 weeks or before if symptoms occur. At the time of discharge, patient denied complaints. DICTATING PHYSICIAN: CHIKIS BURTON M.D. [id number] PHY#: [id number] ID: [id number] JOB#: [id number] ACCT: [id number] cc:Roel AHN M.D >
== END 2018-09-22 10:59 | disposition home or self-care (01) ==
LOC: OROUT 09:39 → 3N 18:24 → OROUT 18:24 → 3N 20:17 → 4S 09-21 22:04
PROVIDERS: ADMIT Specialist; ATTEND Obstetrics & Gynecology Gynecology
PROC: 0UPD7HZ Removal of Contraceptive Device from Uterus and Cervix, Via Natural or Artificial Opening (ICD-10-PCS; 2018-09-20)
PROC: 0UL74CZ Occlusion of Bilateral Fallopian Tubes with Extraluminal Device, Percutaneous Endoscopic Approach (ICD-10-PCS; principal; 2018-09-20 12:00)
PROC: HZ31ZZZ Individual Counseling for Substance Abuse Treatment, Behavioral (ICD-10-PCS; 2018-09-21)
DX: Z30.2 Encounter for sterilization (principal); I97.191 Other postprocedural cardiac functional disturbances following other surgery; I48.0 Paroxysmal atrial fibrillation; Y84.8 Other medical procedures as the cause of abnormal reaction of the patient, or of later complication, without mention of misadventure at the time of the procedure; R00.1 Bradycardia, unspecified; T50.995A Adverse effect of other drugs, medicaments and biological substances, initial encounter; Y92.239 Unspecified place in hospital as the place of occurrence of the external cause; T81.89XA Other complications of procedures, not elsewhere classified, initial encounter; M25.519 Pain in unspecified shoulder; R11.0 Nausea; F17.210 Nicotine dependence, cigarettes, uncomplicated; Z30.432 Encounter for removal of intrauterine contraceptive device; Z87.74 Personal history of (corrected) congenital malformations of heart and circulatory system; Z82.49 Family history of ischemic heart disease and other diseases of the circulatory system
CPT/HCPCS: 58671; 58301; 99406; 36415 ×2; 84439; 82962; 80051; 83735; 84100; 84443; 85027; 81005; 81025; 84481; 93306; 93005 ×2; 93010 ×2; 94640; J2250; J3490 ×8; J1885; J3010; J2765; J0330; J2405; S0020; J2704; S0028; J0131; 851; G0378; G0379

== ENCOUNTER 2019-06-09 12:39 | Emergency (ER) | payer OTHER, MEDICAID ==
[2019-06-09 12:46] VITALS: BP 125/74
[2019-06-09] MEDS ORDERED: ACETAMINOPHEN 325 MG TABLET PO ONE (12:54)
[2019-06-09] MEDS ORDERED: LIDOCAINE 5% (700 MG) TRANSDERMAL ADH..PATCH TP ONE (12:54)
--- NOTE | 2019-06-09 12:56 | ER Document Report ---
HPI - HPI Patient complains to provider of: Upper back pain Time Seen by Provider: 06/09/19 12:54 Onset: This morning Onset/Duration: Gradual Quality of pain: Achy Pain Level: 5 Context: Patient states she woke up with right upper back pain. Patient denies any injury. Patient denies any improvement with use of TENS unit at home. Patient without any headache or fever. Associated Symptoms: Other - Right upper back pain. denies: Nonproductive cough, Productive cough, Headache Exacerbated by: Movement Relieved by: Denies Similar symptoms previously: Yes Recently seen / treated by doctor: No - ROS ROS below otherwise negative: Yes Systems Reviewed and Negative: Yes All other systems reviewed and negative - CONSTITUTIONAL Constitutional: DENIES: Fever, Chills - NEURO Neurology: DENIES: Headache, Weakness - CARDIOVASCULAR Cardiovascular: DENIES: Chest pain - REPRODUCTIVE Reproductive: DENIES: : - MUSCULOSKELETAL Musculoskeletal: REPORTS: Back Pain. DENIES: Extremity pain, Neck Pain - DERM Skin Color: Normal Skin Problems: None Past Medical History - General Information source: Patient - Social History Smoking Status: Never Smoker Frequency of alcohol use: None Drug Abuse: None Occupation: None Lives with: Family Family History: CAD, COPD, DM, Hyperlipidemia, Hypertension Patient has suicidal ideation: No Patient has homicidal ideation: No Neurological Medical History: Denies: Hx Cerebrovascular Accident, Hx Seizures Endocrine Medical History: Denies: Hx Diabetes Mellitus Type 1, Hx Diabetes Mellitus Type 2 Musculoskeletal Medical History: Denies Hx Arthritis Psychiatric Medical History: Reports: Hx Anxiety, Hx Depression Past Surgical History: Reports: Hx Abdominal Surgery - hernia, Hx Cardiac Surgery - vsd repair, Hx Herniorrhaphy, Hx Umbilical Hernia - Immunizations Hx Diphtheria, Pertussis, Tetanus Vaccination: Yes Vertical Provider Document - CONSTITUTIONAL Agree With Documented VS: Yes Exam Limitations: No Limitations General Appearance: WD/WN, No Apparent Distress - INFECTION CONTROL TRAVEL OUTSIDE OF THE [place] IN LAST 30 DAYS: No - HEENT HEENT: Atraumatic, Normocephalic - NECK Neck: Normal Inspection, Supple, Other - No meningismus - RESPIRATORY Respiratory: Breath Sounds Normal, No Respiratory Distress - CARDIOVASCULAR Cardiovascular: Regular Rate, Regular Rhythm - BACK Back: Abnormal Inspection - Right trapezius muscle tenderness with spasm. negative: CVA Tenderness-Right, CVA Tenderness-Left - MUSCULOSKELETAL/EXTREMETIES Musculoskeletal/Extremeties: MAEW, FROM, Non-Tender - NEURO Level of Consciousness: Awake, Alert, Appropriate Motor/Sensory: No Motor Deficit - DERM Integumentary: Warm, Dry, No Rash Course - Vital Signs Vital signs: Temp Pulse Resp BP Pulse Ox 98.9 F 57 L 17 125/74 100 06/09/19 12:45 06/09/19 12:45 06/09/19 12:45 06/09/19 12:45 06/09/19 12:45 Discharge - Discharge Clinical Impression: Trapezius muscle strain Qualifiers: Encounter type: initial encounter Laterality: right Qualified Code(s): S46.811A - Strain of other muscles, fascia and tendons at shoulder and upper arm level, right arm, initial encounter Condition: Stable Disposition: HOME, SELF-CARE Instructions: Muscle Relaxers ([facility]), Muscle Strain ([facility]), Upper Back Strain ([facility]), Warm Packs ([facility]) Additional Instructions: Return immediately for any new or worsening symptoms Followup with your primary care provider, call tomorrow to make a followup appointment Prescriptions: Naproxen [Naprosyn 250 Nmg Tablet] 1 tab PO BID #14 tablet Methocarbamol [Robaxin 500 Mg Tablet] 500 mg PO QID PRN #20 tablet PRN Reason: Referrals: ANDREA YOO MD [Primary Care Provider] - Follow up as needed
== END 2019-06-09 13:06 | disposition home or self-care (01) ==
LOC: ER 12:39
DX: S29.012A Strain of muscle and tendon of back wall of thorax, initial encounter (principal); X58.XXXA Exposure to other specified factors, initial encounter; M62.830 Muscle spasm of back
CPT/HCPCS: 99283

== ENCOUNTER 2019-07-19 21:47 | Emergency (ER) | payer MEDICAID, OTHER ==
[2019-07-19] MEDS ORDERED: NORMAL SALINE 1000 ML 1,000 ML IV ONE (22:24)
[2019-07-19] MEDS ORDERED: ONDANSETRON HCL INJ/PF 4 MG/2 ML SDV IV ONE (22:24)
[2019-07-19 23:40] LABS: ABSOLUTE EOSINOPHILS # (AUTO) 0.1 10^3/uL (0.0-0.6); ABSOLUTE LYMPHOCYTES (AUTO) 0.5 10^3/uL (0.5-4.7); ABSOLUTE MONOCYTES (AUTO) 0.6 10^3/uL (0.1-1.4); ABSOLUTE NEUT (AUTO) 8.8 10^3/uL (1.7-8.2); BASOPHILS % (AUTO) 0.2 % (0-2); EOSINOPHILS % (AUTO) 0.9 % (0-6); HEMATOCRIT 44.1 % (36.0-47.0); HEMOGLOBIN 15.7 g/dL (12.0-15.5); LYMPHOCYTES % (AUTO) 5.3 % (13-45); MEAN CORPUSCULAR HGB CONC 35.6 g/dL (32.0-36.0); MEAN CORPUSCULAR VOLUME 90 fl (80-97); MONOCYTES % (AUTO) 5.9 % (3-13); PLATELET COUNT 161 10^3/uL (150-450); RED BLOOD COUNT 4.91 10^6/uL (3.72-5.28); RED CELL DISTRIBUTION WIDTH 12.5 % (11.5-14.0); SEGMENTED NEUTROPHILS % (AUTO) 87.7 % (42-78); TOTAL CELLS COUNTED % (AUTO) 100 %
[2019-07-19 23:49] LABS: APPEARANCE,URINE CLOUDY; BILIRUBIN,URINE NEGATIVE (NEGATIVE); CALCIUM OXALATE CRYSTALS,URINE RARE /HPF; COLOR,URINE AMBER; GLUCOSE, URINE NEGATIVE (NEGATIVE); KETONES,URINE 20 mg/dL (NEGATIVE); LEUKOCYTE ESTERASE,URINE MODERATE (NEGATIVE); NITRITE,URINE NEGATIVE (NEGATIVE); PROTEIN,URINE 30 mg/dL (NEGATIVE); URINE SPECIFIC GRAVITY 1.024
[2019-07-20] LABS: ALBUMIN 4.5 g/dL (3.5-5.0); ALKALINE PHOSPHATASE 68 U/L (38-126); ANION GAP 10 (5-19); ASPARTATE AMINO TRANSFERASE 23 U/L (14-36); BILIRUBIN,DIRECT 0.1 mg/dL (0.0-0.4); BILIRUBIN,TOTAL 1.8 mg/dL (0.2-1.3); BLOOD UREA NITROGEN 10 mg/dL (7-20); CALCIUM 9.6 mg/dL (8.4-10.2); CARBON DIOXIDE 25 mmol/L (22-30); CHLORIDE 107 mmol/L (98-107); GLUCOSE 90 mg/dL (75-110); POTASSIUM 3.5 mmol/L (3.6-5.0); TOTAL PROTEIN 7.4 g/dL (6.3-8.2)
--- NOTE | 2019-07-20 00:31 | ER Document Report ---
ED General - General Chief Complaint: Nausea/Vomiting Stated Complaint: NAUSEA/VOMITING/WEAKNESS Time Seen by Provider: 07/20/19 00:31 Primary Care Provider: LORENZO GOODRICH MD [HONORARY] - Follow up as needed TRAVEL OUTSIDE OF THE [place] IN LAST 30 DAYS: No - HPI Notes: 23-year-old female presents complaining of 2 days of nausea, vomiting and abdominal cramping. Patient states she thinks she is having the symptoms because she is under an exceptional amount of stress because of discord between her and her spouse. Patient states she has seen a therapist and has been on Pro alex 20 mg p.o. daily but ran out 4 days ago. Patient states she felt like she was seen some improvement since starting the Prozac back in early May of this year. Patient denies fever, chills, localized abdominal pain, dysuria, back pain. Patient states she feels better since she has received some IV fluid and IV Zofran. Patient states she has Zofran ODT at home. - Related Data Allergies/Adverse Reactions: amoxicillin Allergy (Verified 09/20/18 10:11) clindamycin Allergy (Verified 09/20/18 10:11) Penicillins Allergy (Verified 09/20/18 10:11) sulfamethoxazole [From Bactrim] Allergy (Verified 09/20/18 10:11) trimethoprim [From Bactrim] Allergy (Verified 09/20/18 10:11) Home Medications: prozac 20mg daily Past Medical History - General Information source: Patient - Social History Smoking Status: Never Smoker Chew tobacco use (# tins/day): No Frequency of alcohol use: None Drug Abuse: None Family History: CAD, COPD, DM, Hyperlipidemia, Hypertension Patient has suicidal ideation: No Patient has homicidal ideation: No - Past Medical History Cardiac Medical History: Denies: Hx Coronary Artery Disease, Hx DVT, Hx Heart Attack, Hx Hypertension Pulmonary Medical History: Denies: Hx Asthma, Hx Bronchitis, Hx COPD, Hx Pneumonia Neurological Medical History: Denies: Hx Cerebrovascular Accident, Hx Seizures Endocrine Medical History: Denies: Hx Diabetes Mellitus Type 1, Hx Diabetes Mellitus Type 2 Renal/ Medical History: Denies: Hx Ectopic , Hx Peritoneal Dialysis Musculoskeletal Medical History: Denies Hx Arthritis Psychiatric Medical History: Reports: Hx Anxiety, Hx Depression Past Surgical History: Reports: Hx Abdominal Surgery - hernia, Hx Cardiac Surgery - vsd repair, Hx Herniorrhaphy, Hx Umbilical Hernia - Immunizations Hx Diphtheria, Pertussis, Tetanus Vaccination: Yes Review of Systems - Review of Systems Constitutional: No symptoms reported EENT: No symptoms reported Cardiovascular: No symptoms reported Respiratory: No symptoms reported Gastrointestinal: Nausea, Vomiting Genitourinary: No symptoms reported Female Genitourinary: No symptoms reported Musculoskeletal: No symptoms reported Skin: No symptoms reported Hematologic/Lymphatic: No symptoms reported Neurological/Psychological: Anxiety -: Yes All other systems reviewed and negative Physical Exam - Vital signs Vitals: Temp Pulse Resp BP Pulse Ox 98.1 F 80 22 H 127/81 H 100 07/19/19 22:15 07/19/19 22:15 07/19/19 22:15 07/19/19 22:15 07/19/19 22:15 - Notes Notes: PHYSICAL EXAMINATION: GENERAL: Well-appearing, well-nourished and in no acute distress. HEAD: Atraumatic, normocephalic. EYES: Pupils equal round and reactive to light, extraocular movements intact, sclera anicteric, conjunctiva are normal. ENT: nares patent, oropharynx clear without exudates. Moist mucous membranes. NECK: Normal range of motion, supple without lymphadenopathy LUNGS: Breath sounds clear to auscultation bilaterally and equal. No wheezes rales or rhonchi. HEART: Regular rate and rhythm without murmurs ABDOMEN: Soft, nontender, normoactive bowel sounds. No guarding, no rebound. No masses appreciated. EXTREMITIES: Normal range of motion, no pitting or edema. No cyanosis. NEUROLOGICAL: No focal neurological deficits. Moves all extremities spontaneously and on command. PSYCH: Normal mood, normal affect. SKIN: Warm, Dry, normal turgor, no rashes or lesions noted. Course - Re-evaluation Re-evalutation: 07/20/19 00:58 Patient states she is feeling better this time and denies having nausea or abdominal cramping. Results of ED MSE discussed with patient. Patient states she understands diagnoses as described to her. This MD is going to provide the patient with a 30-day refill on her Prozac 20 mg which she takes 20 mg of daily. Patient was instructed about emergency signs and symptoms, reasons to return to the emergency department. All questions were answered prior to discharge. - Vital Signs Vital signs: Temp Pulse Resp BP Pulse Ox 98.1 F 80 22 H 127/81 H 100 07/19/19 22:15 07/19/19 22:15 07/19/19 22:15 07/19/19 22:15 07/19/19 22:15 07/20/19 00:59 Vital signs reviewed by this MD. - Laboratory Result Diagrams: 07/19/19 23:15 07/19/19 23:15 Laboratory results interpreted by me: 07/19/19 07/19/19 07/19/19 23:15 23:15 23:15 Hgb 15.7 H Lymph % (Auto) 5.3 L Absolute Neuts (auto) 8.8 H Seg Neutrophils % 87.7 H Potassium 3.5 L Total Bilirubin 1.8 H Urine Protein 30 H Urine Ketones 20 H Urine Urobilinogen 2.0 H Ur Leukocyte Esterase MODERATE H Urine Ascorbic Acid 40 H 07/20/19 01:00 Lab results reviewed by this MD. Discharge - Discharge Clinical Impression: Nausea & vomiting, Anxiety as acute reaction to exceptional stress, Encounter for medication refill, UTI (urinary tract infection) Condition: Good Disposition: HOME, SELF-CARE Instructions: Urinary Tract Infection ([facility]) Additional Instructions: Return to the Emergency Department without delay if any worse. Anxiety The physician feels that some of your health problems are being caused by anxiety. Anxiety affects your health in many ways. Anxiety alone can cause palpitations, sweats, chest pains, abdominal pains, shortness of breath, and headaches. It contributes to ulcer disease, high blood pressure, irritable bowel syndrome, and has been shown to cause flare-ups of many other diseases. Anxiety is not a simple disorder to treat. If the anxiety is due to recent life stresses, you may simply need time to "work through" the changes. If the anxiety is due to an underlying unhappiness with yourself or due to psychiatric disturbance, professional help will be needed. Your physician can refer you for further help if needed. Anti-anxiety medication is occasionally given if the stress is acute or if you are having trouble sleeping. Chronic or frequent use of these medications is not a good idea because the body becomes reliant on it, preventing you from dealing with life's normal stresses. HOME CARE INSTRUCTIONS & INFORMATION: Thank you for choosing us for your medical needs. We hope you're satisfied with the care you received. After you leave, you must properly care for your problem and, at the same time, observe its progress. Any condition can change. Some illnesses can change rapidly over hours or days. If your condition worsens, return to the Emergency Department or see your physician promptly. ABOUT YOUR X-RAYS AND EKG'S: If you had an EKG or X-rays taken, they have been read by the Emergency Physician. The X-rays and EKG's will also be read by a Radiologist or Nps within 24 hours. If discrepancies are noted, you will be notified by telephone. Please be certain the ED has a correct telephone number & address where you can be reached. Also, realize that some fractures or abnormalities do not show up on initial X-rays. If your symptoms continue, see your physician. ABOUT YOUR LABORATORY TEST: If you had laboratory tests, the results have been reviewed by the Emergency Physician. Some test results (for example cultures) may not be available for several days. You will be contacted if any test result shows you need additional treatment. Please be certain the ED has a correct telephone number and address where you can be reached. ABOUT YOUR MEDICATIONS: You will receive instructions on how to take your medicine on the prescription label you receive. Additional information may be provided by the Pharmacy. If you have questions afterwards, call the ED for clarification or further instructions. Some prescribed medications may cause drowsiness. Do not perform tasks such as driving a car or operating machinery without consulting your Pharmacist. If you feel you need a refill of pain medication, your condition will need re-evaluation. Please do not call for a refill of any medication. ABOUT YOUR SIGNATURE: Signature of this document acknowledges to followin. Understanding that you received emergency treatment and that you may be released before al medical problems are known or treated. Please be certain the ED has a correct phone number & address where you can be reached. 2. Acknowledgement that you will arrange for follow-up care as recommended. 3. Authorization for the Emergency Physician to provide information to your follow-up Physician in order to maximize your care. AT ANY TIME, IF YOUR SYMPTOMS CHANGE SIGNIFICANTLY OR WORSEN OR YOU DEVELOP NEW SYMPTOMS, RETURN TO THE EMERGENCY DEPARTMENT IMMEDIATELY FOR RE-EVALUATION. OUR GOAL IS TO PROVIDE EXCELLENT MEDICAL CARE! WE HOPE THAT WE HAVE MET YOUR EXPECTATIONS DURING YOUR EMERGENCY DEPARTMENT VISIT AND THAT YOU FEEL YOU HAVE RECEIVED EXCELLENT CARE! Prescriptions: Nitrofurantoin Macrocrystal [Macrodantin] 100 mg PO BID 7 Days #14 capsule Fluoxetine HCl [Prozac 20 mg Capsule] 20 mg PO DAILY #30 capsule Referrals: LORENZO GOODRICH MD [HONORARY] - Follow up as needed
[2019-07-20 01:17] VITALS: BP 120/67
== END 2019-07-20 01:17 | disposition home or self-care (01) ==
LOC: ER 21:47
DX: R11.2 Nausea with vomiting, unspecified (principal); N39.0 Urinary tract infection, site not specified; F41.1 Generalized anxiety disorder; F43.0 Acute stress reaction; R10.9 Unspecified abdominal pain; Z63.0 Problems in relationship with spouse or partner; Z76.0 Encounter for issue of repeat prescription; Z88.0 Allergy status to penicillin; Z88.1 Allergy status to other antibiotic agents
CPT/HCPCS: 99283; 96361; 96374; 36415; 85025; 80053; 81001; J2405; J7030

== ENCOUNTER 2019-08-25 21:00 | Emergency (ER) | payer OTHER ==
[2019-08-25] MEDS ORDERED: MAG HYDROX/AL HYDROX/SIMETH SUSP 30 ML UDCUP PO ONE (21:19)
[2019-08-25] MEDS ORDERED: ONDANSETRON HCL INJ/PF 4 MG/2 ML SDV IV ONE (21:19)
[2019-08-25] MEDS ORDERED: LIDOCAINE 2% VISCOUS SOLN 20 ML UDCUP PO ONE (21:19)
--- NOTE | 2019-08-25 21:22 | ER Document Report ---
ED Medical Screen (RME) - General Chief Complaint: Epigastric Pain Stated Complaint: EPIGASTRIC/CHEST PAIN Time Seen by Provider: 08/25/19 21:17 TRAVEL OUTSIDE OF THE [place] IN LAST 30 DAYS: No - HPI Notes: 08/25/19 21:19 Patient is a 23-year-old female who presents with nausea and epigastric abdominal pain that began yesterday, but worsened today after eating out for dinner. She is still urinating normally and having normal bowel movements. Patient states that she does feel the pain in her mid back as well. No fever, chest pain, shortness of breath. I have treated and performed a rapid initial assessment of this patient. A comprehensive ED assessment and evaluation of the patient, analysis of test results and completion of medical decision making process will be conducted by additional ED providers. PHYSICAL EXAMINATION: GENERAL: Well-appearing, well-nourished and in no acute distress. A&Ox4. Answers questions appropriately. Abdomen: Limited exam in triage, patient does have epigastric abdominal tenderness. - Related Data Allergies/Adverse Reactions: amoxicillin Allergy (Verified 09/20/18 10:11) clindamycin Allergy (Verified 09/20/18 10:11) Penicillins Allergy (Verified 09/20/18 10:11) sulfamethoxazole [From Bactrim] Allergy (Verified 09/20/18 10:11) trimethoprim [From Bactrim] Allergy (Verified 09/20/18 10:11) Past Medical History - Past Medical History Cardiac Medical History: Denies: Hx Coronary Artery Disease, Hx DVT, Hx Heart Attack, Hx Hypertension Pulmonary Medical History: Denies: Hx Asthma, Hx Bronchitis, Hx COPD, Hx Pneumonia Neurological Medical History: Denies: Hx Cerebrovascular Accident, Hx Seizures Endocrine Medical History: Denies: Hx Diabetes Mellitus Type 1, Hx Diabetes Mellitus Type 2 Renal/ Medical History: Denies: Hx Ectopic , Hx Peritoneal Dialysis Musculoskeltal Medical History: Denies Hx Arthritis Psychiatric Medical History: Reports: Hx Anxiety, Hx Depression Past Surgical History: Reports: Hx Abdominal Surgery - hernia, Hx Cardiac Surgery - vsd repair, Hx Herniorrhaphy, Hx Umbilical Hernia - Immunizations Hx Diphtheria, Pertussis, Tetanus Vaccination: Yes Physical Exam - Vital signs Vitals: Temp Pulse Resp BP Pulse Ox 98.4 F 85 16 146/94 H 98 08/25/19 21:06 08/25/19 21:06 08/25/19 21:06 08/25/19 21:06 08/25/19 21:06 Course - Vital Signs Vital signs: Temp Pulse Resp BP Pulse Ox 98.4 F 85 16 146/94 H 98 08/25/19 21:06 08/25/19 21:06 08/25/19 21:06 08/25/19 21:06 08/25/19 21:06
[2019-08-25 22:18] LABS: ABSOLUTE LYMPHOCYTES (AUTO) 1.2 10^3/uL (0.5-4.7); ABSOLUTE MONOCYTES (AUTO) 0.7 10^3/uL (0.1-1.4); ABSOLUTE NEUT (AUTO) 7.2 10^3/uL (1.7-8.2); BASOPHILS % (AUTO) 0.3 % (0-2); EOSINOPHILS % (AUTO) 0.3 % (0-6); HEMATOCRIT 40.8 % (36.0-47.0); HEMOGLOBIN 14.7 g/dL (12.0-15.5); LYMPHOCYTES % (AUTO) 12.9 % (13-45); MEAN CORPUSCULAR HEMOGLOBIN 32.2 pg (27.0-33.4); MEAN CORPUSCULAR HGB CONC 36.1 g/dL (32.0-36.0); MEAN CORPUSCULAR VOLUME 89 fl (80-97); MONOCYTES % (AUTO) 7.6 % (3-13); PLATELET COUNT 197 10^3/uL (150-450); RED BLOOD COUNT 4.58 10^6/uL (3.72-5.28); RED CELL DISTRIBUTION WIDTH 12.7 % (11.5-14.0); SEGMENTED NEUTROPHILS % (AUTO) 78.9 % (42-78); TOTAL CELLS COUNTED % (AUTO) 100 %; WHITE BLOOD COUNT 9.2 10^3/uL (4.0-10.5)
[2019-08-25 22:23] LABS: APPEARANCE,URINE CLEAR; BILIRUBIN,URINE NEGATIVE (NEGATIVE); CALCIUM OXALATE CRYSTALS,URINE RARE /HPF; COLOR,URINE YELLOW; GLUCOSE, URINE NEGATIVE (NEGATIVE); KETONES,URINE NEGATIVE (NEGATIVE); PROTEIN,URINE 30 mg/dL (NEGATIVE)
[2019-08-25] MEDS ORDERED: ONDANSETRON 4 MG TAB.RAPDIS PO ONE (22:25)
[2019-08-25 22:29] LABS: ALBUMIN 4.7 g/dL (3.5-5.0); ALKALINE PHOSPHATASE 73 U/L (38-126); ANION GAP 10 (5-19); ASPARTATE AMINO TRANSFERASE 56 U/L (14-36); BILIRUBIN,DIRECT 0.3 mg/dL (0.0-0.4); BILIRUBIN,TOTAL 1.2 mg/dL (0.2-1.3); BLOOD UREA NITROGEN 11 mg/dL (7-20); CALCIUM 9.8 mg/dL (8.4-10.2); CARBON DIOXIDE 29 mmol/L (22-30); CHLORIDE 104 mmol/L (98-107); GLUCOSE 94 mg/dL (75-110); POTASSIUM 3.4 mmol/L (3.6-5.0); TOTAL PROTEIN 7.7 g/dL (6.3-8.2)
--- NOTE | 2019-08-25 23:08 | ER Document Report ---
ED GI/ - General Chief Complaint: Abdominal Pain Stated Complaint: EPIGASTRIC/CHEST PAIN Time Seen by Provider: 08/25/19 21:17 Primary Care Provider: [facility] [Provider Group] - Follow up as needed [facility] [Provider Group] - Follow up as needed [facility] [Provider Group] - Follow up as needed [facility] [Provider Group] - Follow up as needed [facility] [Provider Group] - Follow up as needed Mode of Arrival: Ambulatory Information source: Patient Notes: 23-year-old female presented to ED for complaint of nausea and epigastric abdominal pain that began yesterday. She states it was worse today after she ate. She states she is having regular bowel movements and voiding normally. She states she does feel some of the pain in her back. No fever shortness of breath chest pain or nausea and vomiting. Patient does have clear lung sounds hyperactive bowel sounds and is tender throughout the abdomen. TRAVEL OUTSIDE OF THE [place] IN LAST 30 DAYS: No - HPI Patient complains to provider of: Abdominal pain Onset: Yesterday Timing/Duration: Intermittent Quality of pain: Sharp Severity at maximum: Severe Severity in ED: Mild Location: Epigastric, LUQ, LLQ, RUQ, RLQ Associated symptoms: Nausea Exacerbated by: Food Relieved by: Denies Similar symptoms previously: Yes Recently seen / treated by doctor: No - Related Data Allergies/Adverse Reactions: amoxicillin Allergy (Verified 09/20/18 10:11) clindamycin Allergy (Verified 09/20/18 10:11) Penicillins Allergy (Verified 09/20/18 10:11) sulfamethoxazole [From Bactrim] Allergy (Verified 09/20/18 10:11) trimethoprim [From Bactrim] Allergy (Verified 09/20/18 10:11) Home Medications: prozac 40mg. buspirone 45mg Past Medical History - General Information source: Patient - Social History Smoking Status: Former Smoker Chew tobacco use (# tins/day): No Frequency of alcohol use: None Drug Abuse: None Occupation: [employer] Lives with: Family Family History: CAD, COPD, DM, Hyperlipidemia, Hypertension Patient has suicidal ideation: No Patient has homicidal ideation: No - Past Medical History Cardiac Medical History: Reports: None Pulmonary Medical History: Reports: None EENT Medical History: Reports: None Neurological Medical History: Reports: None Endocrine Medical History: Reports: None Renal/ Medical History: Reports: None Malignancy Medical History: Reports: None GI Medical History: Reports: None Musculoskeletal Medical History: Reports None Skin Medical History: Reports None Psychiatric Medical History: Reports: Hx Anxiety, Hx Depression - anxiety Traumatic Medical History: Reports: None Infectious Medical History: Reports: None Past Surgical History: Reports: Hx Abdominal Surgery - hernia, Hx Cardiac Surgery - vsd repair, Hx Tubal Ligation, Hx Umbilical Hernia - Immunizations Immunizations up to date: Yes Hx Diphtheria, Pertussis, Tetanus Vaccination: Yes Review of Systems - Review of Systems Constitutional: No symptoms reported EENT: No symptoms reported Cardiovascular: No symptoms reported Respiratory: No symptoms reported Gastrointestinal: Abdominal pain, Nausea Genitourinary: No symptoms reported Female Genitourinary: No symptoms reported Musculoskeletal: No symptoms reported Skin: No symptoms reported Hematologic/Lymphatic: No symptoms reported Neurological/Psychological: No symptoms reported -: Yes All other systems reviewed and negative Physical Exam - Vital signs Vitals: Temp Pulse Resp BP Pulse Ox 98.4 F 85 16 146/94 H 98 08/25/19 21:06 08/25/19 21:06 08/25/19 21:06 08/25/19 21:06 08/25/19 21:06 Interpretation: Normal - General General appearance: Appears well, Alert - HEENT Head: Normocephalic, Atraumatic Eyes: Normal Pupils: PERRL - Respiratory Respiratory status: No respiratory distress Chest status: Nontender Breath sounds: Normal Chest palpation: Normal - Cardiovascular Rhythm: Regular Heart sounds: Normal auscultation Murmur: No - Abdominal Inspection: Normal Distension: No distension Bowel sounds: Hyperactive Tenderness: Tender Organomegaly: No organomegaly - Back Back: Normal, Nontender - Extremities General upper extremity: Normal inspection, Nontender, Normal color, Normal ROM, Normal temperature General lower extremity: Normal inspection, Nontender, Normal color, Normal ROM, Normal temperature, Normal weight bearing. No: Jose De Jesus's sign - Neurological Neuro grossly intact: Yes Cognition: Normal Orientation: AAOx4 [place] Coma Scale Eye Opening: Spontaneous [place] Coma Scale Verbal: Oriented [place] Coma Scale Motor: Obeys Commands [place] Coma Scale Total: 15 Speech: Normal Motor strength normal: LUE, RUE, LLE, RLE Sensory: Normal - Psychological Associated symptoms: Normal affect, Normal mood - Skin Skin Temperature: Warm Skin Moisture: Dry Skin Color: Normal Course - Vital Signs Vital signs: Temp Pulse Resp BP Pulse Ox 98.5 F 64 18 121/67 98 08/26/19 00:00 08/26/19 00:00 08/26/19 00:00 08/26/19 00:00 08/26/19 00:00 - Laboratory Result Diagrams: 08/25/19 21:55 08/25/19 21:55 Laboratory results interpreted by me: 08/25/19 08/25/19 08/25/19 21:46 21:55 21:55 MCHC 36.1 H Lymph % (Auto) 12.9 L Seg Neutrophils % 78.9 H Potassium 3.4 L AST 56 H Urine Protein 30 H Urine Urobilinogen 4.0 H Urine Ascorbic Acid 40 H - Diagnostic Test Radiology reviewed: Image reviewed, Reports reviewed Discharge - Discharge Clinical Impression: Constipation Qualifiers: Constipation type: unspecified constipation type Qualified Code(s): K59.00 - Constipation, unspecified Abdominal pain Qualifiers: Abdominal location: generalized Qualified Code(s): R10.84 - Generalized abdominal pain Condition: Stable Disposition: HOME, SELF-CARE Additional Instructions: ABDOMINAL PAIN: There are many causes of abdominal pain. Pain can mean a serious problem requiring surgery (such as appendicitis). It can also be an innocent problem that goes away on its own (such as a viral infection). Often, time must pass to determine the cause of pain. The physician does not feel that hospitalization is necessary, at present. Things may change within the next 24 hours. Call the doctor or come back for re- examination if any problems occur, such as: (1) Pain that becomes more severe, steady, or becomes concentrated in one specific area. Also, pain that is more severe with movement or coughing. (2) Vomiting that persists or becomes more frequent. (3) Blood in the vomitus, urine, or bowel movements. Blood in the stool may have a tarry or black appearance. (4) Shaking chills or fever greater than 100 degrees F. (5) The abdomen becomes more distended or swollen. (6) Bowel movements cease. (7) Failure to improve as expected. NORMAL EXAM AND WORKUP: At this time, your examination and workup show no significant abnormality. No significant abnormal physical findings are noted. All laboratory, EKG, and imaging (x-ray, CT scans, ultrasound) studies that were ordered show no significant abnormality. Although your examination and all studies that were ordered showed no significant abnormal finding, there are no examinations and no studies that are 100% accurate. There is always the possibility that some abnormality could exist and not be detected with physical examination or within the limits and capabilities of laboratory and other studies. You should return or follow up as you were instructed on your visit today for further evaluation if your symptoms do not resolve. CONSTIPATION: Constipation is a common problem. It is especially likely as you get older. Constipation is a common cause of abdominal pain, but sometimes causes no symptoms at all. Causes of constipation include certain medications, dehydration, diets, inactivity, and low-fiber intake. Rarely, it can be a symptom of underlying disease. The physician has evaluated you for this. Avoid constipation by eating a diet high in fiber, fruits, and vegetables. Drink plenty of liquids. Get regular exercise. If possible, avoid constipating medicines like narcotic pain medication. Some vitamin tablets can cause constipation. Stool softeners may be needed for difficult cases. An excellent stool softener is Konsyl which is available at [employer], and [facility] [employer]. Just add a teaspoon to a glass of pineapple or orange juice daily or twice a day if needed. Laxatives are useful for occasional constipation. You should use them only when necessary. Too-frequent use can make your bowels dependent on them. Some over the counter laxatives available without prescription are: Milk of Magnesia, 1-2 tablespoons twice a day Dulcolax, 5 mg pill or 10 mg suppository. Citrate of Magnesia, 4-5 ounces a day for a day or two For acute constipation, Fleet's Enemas and Dulcolax suppositories are helpful. Chronic, nursing home use of laxatives or enemas is not a good idea. Your bowel may become dependant on them. You do not need to have a bowel movement every day. Many people do fine with a bowel movement every three or four days. You should call your doctor or return for re-evaluation if you pass blood in the stool, or if you develop fever or increasing abdominal pain. BULK LAXATIVES: Bulk laxatives make the stool softer and bulkier. They're useful for preventing constipation. You can choose between psyllium, methylcellulose, and polycarbophil. They are available without a prescription. Psyllium brand names include Konsyl, Metamucil, Perdiem, Effer-Syllium and Hydrocil. It's available as powder, flavored drink powder, or chewable. The usual dose of psyllium powder is one heaping teaspoon in water each morning, increasing to twice a day if needed. [place] juice can disguise the slightly grainy texture. Methylcellulose is marketed as Citrucel and other brands. The average dose is two grams in a cup of water one to three times a day. Polycarbophil is marketed as Fiber-Con. Take two tablets with a cup of water one to three times a day. LAXATIVE: A laxative agent has been prescribed for your condition. This should result in passage of stool within 12 hours. Some mild intestinal cramping is common as the hard stool begins to move. You may have loose or runny stools for a short time. Contact your doctor if there is severe cramping, vomiting, or passage of blood. Return for further care if this medicine fails to improve your condition. FOLLOW-UP CARE: If you have been referred to a physician for follow-up care, call the physicians office for an appointment as you were instructed or within the next two days. If you experience worsening or a significant change in your symptoms, notify the physician immediately or return to the Emergency Department at any time for re-evaluation. Forms: Return to Work Referrals: [facility] [Provider Group] - Follow up as needed [facility] [Provider Group] - Follow up as needed [facility] [Provider Group] - Follow up as needed [facility] [Provider Group] - Follow up as needed [facility] [Provider Group] - Follow up as needed
--- NOTE | 2019-08-25 23:50 | RADIOLOGY REPORT (SQ) ---
EXAM DESCRIPTION: XR ABDOMEN SUPINE AND ERECT WITH CHEST (ABD ACUTE SERIES) COMPLETED DATE/TME: 08/25/2019 23:07 CLINICAL HISTORY: 23 years, Female, abdominal pain after eating COMPARISON: 07/01/2016 chest NUMBER OF VIEWS: 3 TECHNIQUE: Upright chest with supine and erect views of the abdomen LIMITATIONS: None. FINDINGS: Heart size normal. Lungs clear. No pneumothorax. No free air under the hemidiaphragms. Bowel gas pattern is nonspecific. Tubal ligation clips in place. Large amount of stool in the colon. Calcifications in the upper abdomen to the right and left of midline. These are nonspecific. No free air IMPRESSION: Negative chest. Nonspecific calcifications could be renal in origin. Abundant stool in the colon copyright 2010 [employer]- All Rights Reserved
[2019-08-26 00:01] VITALS: BP 121/67
[2019-08-26] MEDS ORDERED: MAGNESIUM CITRATE 296 ML BOTTLE PO ONE (00:06)
== END 2019-08-26 00:18 | disposition home or self-care (01) ==
LOC: ER 21:00
DX: K59.00 Constipation, unspecified (principal); R10.84 Generalized abdominal pain; R10.13 Epigastric pain; R11.0 Nausea; R07.9 Chest pain, unspecified; Z88.0 Allergy status to penicillin
CPT/HCPCS: 99284; 36415; 83690; 85025; 81025; 80053; 81001; 74022; J3490 ×2; S0119

== ENCOUNTER 2019-10-03 08:33 | Emergency (ER) | payer OTHER ==
[2019-10-03] MEDS ORDERED: IBUPROFEN 400 MG TABLET PO ONE (09:07)
--- NOTE | 2019-10-03 09:09 | ER Document Report ---
ED GI/ - General Chief Complaint: Urinary Problem Stated Complaint: POSSIBLE UTI Time Seen by Provider: 10/03/19 09:04 Mode of Arrival: Ambulatory Information source: Patient Notes: 23-year-old female presents to ED for burning frequency urgency with urine now she is having pelvic pain and bilateral flank pain. She took Azo for day and a half. Now she is coming to the ED for treatment for the UTI. No vaginal discharge. No blood in the urine. Her temperature was 98 this morning she felt feverish but the temp was 98. Last menstrual cycle about 2 weeks ago. TRAVEL OUTSIDE OF THE [place] IN LAST 30 DAYS: No - HPI Patient complains to provider of: Flank pain, Pelvic pain, Other - Urinary urgency frequency and burning now she has flank pain and pelvic pain Onset: Other - 2 days Timing/Duration: Gradual Quality of pain: Achy, Burning Severity at maximum: Moderate Severity in ED: Moderate Pain Level: 4 Location: Left flank, Right flank, Pelvis, Vaginal Vaginal bleeding (Compared to normal period): None LMP: Last month Sexual history: Active - Low tube location Associated symptoms: Dysuria, Urinary frequency, Urinary urgency, Other - Neck pain and pelvic pain Exacerbated by: Denies, Standing Similar symptoms previously: Yes Recently seen / treated by doctor: No - Related Data Allergies/Adverse Reactions: amoxicillin Allergy (Verified 10/03/19 09:00) clindamycin Allergy (Verified 10/03/19 09:00) Penicillins Allergy (Verified 10/03/19 09:00) sulfamethoxazole [From Bactrim] Allergy (Verified 10/03/19 09:00) trimethoprim [From Bactrim] Allergy (Verified 10/03/19 09:00) Past Medical History - General Information source: Patient - Social History Smoking Status: Current Every Day Smoker Cigarette use (# per day): Yes - 5 cigarettes a day Smoking Education Provided: Yes - Minutes Frequency of alcohol use: None Drug Abuse: None Lives with: Family Family History: CAD, COPD, DM, Hyperlipidemia, Hypertension - Past Medical History Cardiac Medical History: Reports: None Pulmonary Medical History: Reports: None EENT Medical History: Reports: None Neurological Medical History: Reports: None Endocrine Medical History: Reports: None Renal/ Medical History: Reports: None Malignancy Medical History: Reports: None GI Medical History: Reports: None Musculoskeletal Medical History: Reports None Skin Medical History: Reports None Psychiatric Medical History: Reports: Hx Anxiety, Hx Depression - anxiety Traumatic Medical History: Reports: None Infectious Medical History: Reports: None Past Surgical History: Reports: Hx Cardiac Surgery - vsd repair, Hx Herniorrhaphy, Hx Tubal Ligation, Hx Umbilical Hernia - Immunizations Immunizations up to date: Yes Hx Diphtheria, Pertussis, Tetanus Vaccination: Yes Review of Systems - Review of Systems Constitutional: No symptoms reported EENT: No symptoms reported Cardiovascular: No symptoms reported Respiratory: No symptoms reported Gastrointestinal: No symptoms reported Genitourinary: No symptoms reported, Burning, Frequency, Flank pain, Urgency Female Genitourinary: No symptoms reported Musculoskeletal: No symptoms reported, Muscle pain Skin: No symptoms reported Hematologic/Lymphatic: No symptoms reported Neurological/Psychological: No symptoms reported -: Yes All other systems reviewed and negative Physical Exam - Vital signs Vitals: Temp Pulse Resp BP Pulse Ox 98.2 F 73 16 130/72 H 97 10/03/19 08:37 10/03/19 08:37 10/03/19 08:37 10/03/19 08:37 10/03/19 08:37 Interpretation: Normal - General General appearance: Appears well, Alert - HEENT Head: Normocephalic, Atraumatic Eyes: Normal Pupils: PERRL - Respiratory Respiratory status: No respiratory distress Chest status: Nontender Breath sounds: Normal Chest palpation: Normal - Cardiovascular Rhythm: Regular Heart sounds: Normal auscultation Murmur: No - Abdominal Inspection: Normal Distension: No distension Bowel sounds: Normal Tenderness: Nontender Organomegaly: No organomegaly - Back Back: Normal, Nontender - Extremities General upper extremity: Normal inspection, Nontender, Normal color, Normal ROM, Normal temperature General lower extremity: Normal inspection, Nontender, Normal color, Normal ROM, Normal temperature, Normal weight bearing. No: Jose De Jesus's sign - Neurological Neuro grossly intact: Yes Cognition: Normal Orientation: AAOx4 [place] Coma Scale Eye Opening: Spontaneous [place] Coma Scale Verbal: Oriented [place] Coma Scale Motor: Obeys Commands [place] Coma Scale Total: 15 Speech: Normal Motor strength normal: LUE, RUE, LLE, RLE Sensory: Normal - Psychological Associated symptoms: Normal affect, Normal mood - Skin Skin Temperature: Warm Skin Moisture: Dry Skin Color: Normal Course - Vital Signs Vital signs: Temp Pulse Resp BP Pulse Ox 97.5 F 65 14 107/69 100 10/03/19 11:15 10/03/19 11:15 10/03/19 11:15 10/03/19 11:15 10/03/19 11:15 - Laboratory Laboratory results interpreted by me: 10/03/19 09:24 Urine Protein 100 H Urine Glucose (UA) 50 H Urine Blood MODERATE H Urine Nitrite (Reflex) POSITIVE H Urine Urobilinogen 4.0 H Discharge - Discharge Clinical Impression: UTI (urinary tract infection) Qualifiers: Urinary tract infection type: acute cystitis Hematuria presence: with hematuria Qualified Code(s): N30.01 - Acute cystitis with hematuria Condition: Stable Disposition: HOME, SELF-CARE Additional Instructions: URINARY TRACT INFECTION: Your evaluation indicates that you have a urinary tract infection. This is due to germs growing in the bladder. This is a common problem. This infection usually responds quickly to antibiotics. Your antibiotic should be taken exactly as prescribed. Drink plenty of fluids -- three to four quarts a day. Occasionally, a bladder anesthetic will be prescribed to help stop the feeling of urgency until the antibiotic has a chance to clear the infection. This may cause your urine to be dark orange. Certain urine infections require a culture. If the doctor obtained a culture, the results will be back in two days. You should call to see if a change in treatment is needed. A repeat urinalysis after you finish treatment is often recommended. The physician will let you know if further testing is required. Call the doctor if you develop fever, chills, flank pain, inability to urinate, or blood in the urine. NITROFURANTOIN (MACRODANTIN, MACROBID): You have received a prescription for nitrofurantoin (Macrodantin). This antibiotic is used for urinary tract infections. Women who are or nursing should notify the physician before taking this medicine. If you have ever had a problem caused by this medication in the past, be sure the physician is aware of it. Common side effects of this medicine include nausea, vomiting, or decreased appetite. Notify your physician if these side effects become severe. Immediately stop this medicine and call the physician if you develop cough, shortness of breath, chest pain, weakness, jaundice (yellow color of the skin and whites of the eyes), or a skin rash. URINARY ANESTHETIC AGENT: You have been given a medication (Pyridium) for urinary tract discomfort. This medicine numbs the lining of the bladder and urethra, resulting in less pain, burning, and urgency. You may take it as needed, according to instructions. When the symptoms resolve, you can stop this medication (be sure to continue any other medications the doctor has given you). This medicine turns the urine a dark orange. It may stain underwear. Occasionally, it can cause nausea. Return for evaluation if there are any unexpected effects, such as itching, hives, or shortness of breath. FOLLOW-UP CARE: If you have been referred to a physician for follow-up care, call the physicians office for an appointment as you were instructed or within the next two days. If you experience worsening or a significant change in your symptoms, notify the physician immediately or return to the Emergency Department at any time for re-evaluation. Prescriptions: Nitrofurantoin Monohyd/M-Cryst [Macrobid 100 mg Capsule] 100 mg PO BID #20 cap Forms: Elevated Blood Pressure, Smoking Cessation Education, Return to Work
[2019-10-03 09:53] LABS: APPEARANCE,URINE SLIGHTLY-CLOUDY; BILIRUBIN,URINE NEGATIVE (NEGATIVE); GLUCOSE, URINE 50 mg/dL (NEGATIVE); KETONES,URINE NEGATIVE (NEGATIVE); PROTEIN,URINE 100 mg/dL (NEGATIVE); URINE SPECIFIC GRAVITY 1.012
[2019-10-03 09:54] LABS: COLOR,URINE ORANGE
[2019-10-03] MEDS ORDERED: NITROFURANTOIN MONOHYD/M-CRYST 100 MG CAPSULE PO ONE (10:48)
[2019-10-03 11:17] VITALS: BP 107/69
== END 2019-10-03 11:17 | disposition home or self-care (01) ==
LOC: ER 08:33
DX: N30.01 Acute cystitis with hematuria (principal); F17.210 Nicotine dependence, cigarettes, uncomplicated; Z88.0 Allergy status to penicillin; Z88.3 Allergy status to other anti-infective agents
CPT/HCPCS: 81025; 81001; J3490; J8499; 87086; 87088